=== PATIENT | female | born 1950 | race African-American/Black ===

== ENCOUNTER 2016-12-14 00:02 | Emergency (ER) | payer OTHER ==
[~2016-12-14] VITALS: Ht 160 cm; Wt 79.4 kg
[2016-12-14 00:02] VITALS: BP_SYST 120
[~2016-12-14 00:02] MED LIST: CHOL100028 PO; CHOL100035 PO; METO-442 PO; METO5TAB86 PO; NEPH PO; ONDA4TAB22 PO; PRO40 PO; SEN30 PO; SEVE800T8 PO; SSREG SUBCUT
[2016-12-14] MEDS ORDERED: MORPHINE 4 MG/ML INJ. SYRINGE IM ONE (00:15)
[2016-12-14] MEDS ORDERED: DIPHENHYDRAMINE HCL 25 MG CAPSULE PO ONE (00:30)
[2016-12-14 01:45] VITALS: BP_SYST 114
== END 2016-12-14 01:45 ==
LOC: SED 00:02
DX: M25.551 Pain in right hip (principal); I10 Essential (primary) hypertension; E11.29 Type 2 diabetes mellitus with other diabetic kidney complication; N28.9 Disorder of kidney and ureter, unspecified; Z79.4 Long term (current) use of insulin; Z88.0 Allergy status to penicillin; Z86.79 Personal history of other diseases of the circulatory system
CPT/HCPCS: 73510; 96372; 99284; J2270; Q0163

== ENCOUNTER 2017-02-12 16:21 | Emergency (ER) | payer OTHER ==
[2017-02-12 16:25] VITALS: BP_SYST 143
[2017-02-12 18:06] LABS: BASOPHILS # (AUTO) 0.1 K/uL (0.0-0.2); BASOPHILS % (AUTO) 1.2 % (0.0-2.0); EOSINOPHILS # (AUTO) 0.2 K/uL (0.0-0.4); EOSINOPHILS % (AUTO) 4.2 % (0.0-4.0); HEMATOCRIT 42.7 % (36-48); HEMOGLOBIN 13.3 g/dL (12.0-16.0); LYMPHOCYTES # (AUTO) 1.9 K/uL (1.0-5.5); LYMPHOCYTES % (AUTO) 33.6 % (20.5-51.5); MEAN CORPUSCULAR HEMOGLOBIN 30 pg (27-31); MEAN CORPUSCULAR HGB CONC 31 % (32-36); MEAN CORPUSCULAR VOLUME 96 fL (79.0-98.0); MONOCYTES # (AUTO) 0.6 K/uL (0.0-1.0); MONOCYTES % (AUTO) 10.1 % (1.7-9.3); NEUTROPHILS # (AUTO) 2.8 K/uL (1.8-7.7); NEUTROPHILS % (AUTO) 50.9 % (40.0-70.0); PLATELET COUNT (AUTO) 252 K/uL (130-430); RED BLOOD CELL COUNT(AUTO) 4.43 MIL/uL (4.2-6.2); RED CELL DISTRIBUTION WIDTH 14.4 % (9.0-15.0); WHITE BLOOD COUNT (AUTO) 5.6 K/uL (4.8-10.8)
[2017-02-12 18:18] LABS: CALCIUM 9.8 mg/dL (8.4-11.0); CREATININE 5.65 mg/dL (0.55-1.30); POTASSIUM 3.8 mmol/L (3.5-5.1)
[2017-02-12 18:23] LABS: ALBUMIN 3.2 g/dL (3.4-4.8); TOTAL BILIRUBIN 0.4 mg/dL (0.0-1.0); TOTAL PROTEIN, SERUM 7.3 g/dL (6.4-8.3)
[2017-02-12 20:41] VITALS: BP_SYST 145
== END 2017-02-12 21:14 | disposition home or self-care (01) ==
LOC: SED 16:21
DX: R53.1 Weakness (principal); R42 Dizziness and giddiness; E11.9 Type 2 diabetes mellitus without complications; I10 Essential (primary) hypertension; Z88.0 Allergy status to penicillin; Z88.2 Allergy status to sulfonamides
CPT/HCPCS: 36415; 70450-TC; 80053; 85025; 99285

== ENCOUNTER 2019-10-08 08:39 | Emergency (ER) | payer OTHER ==
[~2019-10-08] VITALS: Ht 160 cm; Wt 72.6 kg
[~2019-10-08 08:39] MED LIST changes: -CHOL100028 PO; +CHOL100034 PO
[2019-10-08 08:52] VITALS: BP_SYST 106
[2019-10-08 09:24] LABS: BASOPHILS # (AUTO) 0.1 K/uL (0.0-0.2); BASOPHILS % (AUTO) 0.7 % (0.0-2.0); EOSINOPHILS # (AUTO) 0.2 K/uL (0.0-0.4); EOSINOPHILS % (AUTO) 2.8 % (0.0-4.0); HEMATOCRIT 37.9 % (36-48); HEMOGLOBIN 12.2 g/dL (12.0-16.0); LYMPHOCYTES # (AUTO) 1.5 K/uL (1.0-5.5); LYMPHOCYTES % (AUTO) 21.4 % (20.5-51.5); MEAN CORPUSCULAR HEMOGLOBIN 32 pg (27-31); MEAN CORPUSCULAR HGB CONC 32 % (32-36); MEAN CORPUSCULAR VOLUME 98 fL (79.0-98.0); MONOCYTES # (AUTO) 0.7 K/uL (0.0-1.0); MONOCYTES % (AUTO) 9.4 % (1.7-9.3); NEUTROPHILS # (AUTO) 4.7 K/uL (1.8-7.7); NEUTROPHILS % (AUTO) 65.7 % (40.0-70.0); PLATELET COUNT (AUTO) 284 K/uL (130-430); RED BLOOD CELL COUNT(AUTO) 3.87 MIL/uL (4.2-6.2); RED CELL DISTRIBUTION WIDTH 16.8 % (9.0-15.0); WHITE BLOOD COUNT (AUTO) 7.2 K/uL (4.8-10.8)
[2019-10-08 09:42] LABS: CALCIUM 8.9 mg/dL (8.4-11.0); CREATININE 5.4 mg/dL (0.55-1.30); POTASSIUM 4.7 mmol/L (3.5-5.1)
[2019-10-08 09:46] LABS: TOTAL BILIRUBIN 0.5 mg/dL (0.0-1.0)
[2019-10-08 10:14] LABS: PROTHROMBIN TIME 9.9 SECS (9.5-12.5)
== END 2019-10-08 10:16 | disposition home or self-care (01) ==
LOC: SED 08:39
DX: T82.838A Hemorrhage due to vascular prosthetic devices, implants and grafts, initial encounter (principal); E11.22 Type 2 diabetes mellitus with diabetic chronic kidney disease; I12.0 Hypertensive chronic kidney disease with stage 5 chronic kidney disease or end stage renal disease; N18.6 End stage renal disease; Z99.2 Dependence on renal dialysis; Z79.4 Long term (current) use of insulin; Z88.0 Allergy status to penicillin
CPT/HCPCS: 36415; 80053; 85025; 85610-TC; 85730-TC; 99283

== ENCOUNTER 2019-12-24 10:31 | Inpatient (IN) | payer OTHER ==
[2019-12-24] VITALS (9 sets, daily range): BP systolic 91–142
[~2019-12-24] VITALS: Ht 160 cm; Wt 68.5 kg
[2019-12-24] MEDS ORDERED: LIDOCAINE 1% 10 MG/ML, 20 ML MDV SUBCUT ONE (11:15)
[2019-12-24] MEDS ORDERED: HYDR-4273 PO (11:42)
[2019-12-24] MEDS ORDERED: OMEP20CA11 PO (11:42)
[2019-12-24] MEDS ORDERED: ALLO100T PO (11:42)
[2019-12-24] MEDS ORDERED: NEPH PO (11:42)
[2019-12-24] MEDS ORDERED: LIP40 PO (11:42)
[2019-12-24] MEDS ORDERED: ASPI-1153 PO (11:42)
[2019-12-24] MEDS ORDERED: MORPHINE 2 MG/ML INJ. SYRINGE IM ONE (12:00)
[2019-12-24] MEDS ORDERED: LORazepam 2 MG/ML VIAL IM ONE (12:00)
[2019-12-24 12:10] LABS: CALCIUM 7.7 mg/dL (8.4-11.0); CREATININE 4.52 mg/dL (0.55-1.30); POTASSIUM 3.7 mmol/L (3.5-5.1)
[2019-12-24] MEDS ORDERED: LORazepam 2 MG/ML VIAL ONE ×2 (12:13→14:17)
[2019-12-24 12:16] LABS: ALBUMIN 2.9 g/dL (3.4-4.8); TOTAL BILIRUBIN 0.6 mg/dL (0.0-1.0)
[2019-12-24 13:34] LABS: BASOPHILS # (AUTO) 0.1 K/uL (0.0-0.2); BASOPHILS % (AUTO) 0.6 % (0.0-2.0); EOSINOPHILS # (AUTO) 0.3 K/uL (0.0-0.4); HEMATOCRIT 27.6 % (36-48); HEMOGLOBIN 8.7 g/dL (12.0-16.0); LYMPHOCYTES # (AUTO) 2.2 K/uL (1.0-5.5); LYMPHOCYTES % (AUTO) 25.1 % (20.5-51.5); MEAN CORPUSCULAR HEMOGLOBIN 32 pg (27-31); MEAN CORPUSCULAR HGB CONC 31 % (32-36); MEAN CORPUSCULAR VOLUME 100 fL (79.0-98.0); MONOCYTES # (AUTO) 0.9 K/uL (0.0-1.0); MONOCYTES % (AUTO) 10.1 % (1.7-9.3); NEUTROPHILS # (AUTO) 5.4 K/uL (1.8-7.7); NEUTROPHILS % (AUTO) 61.2 % (40.0-70.0); PLATELET COUNT (AUTO) 226 K/uL (130-430); RED BLOOD CELL COUNT(AUTO) 2.75 MIL/uL (4.2-6.2); RED CELL DISTRIBUTION WIDTH 16.1 % (9.0-15.0); WHITE BLOOD COUNT (AUTO) 8.8 K/uL (4.8-10.8)
[2019-12-24] MEDS ORDERED: NOREPINEPHRINE 4 MG/4 ML VIAL IV ONE (14:12)
[2019-12-24] MEDS ORDERED: NOREPINEPHRINE BITARTRATE 4 MG in NS 246 ML IV ONE (14:15)
[2019-12-24] MEDS ORDERED: NACL 0.9% 1,000 ML IV ONE (14:45)
[2019-12-24] MEDS ORDERED: DEXTROSE 50% JECT 50 ML DISP.SYRIN IVP PRN (15:15)
[2019-12-24] MEDS ORDERED: LORazepam 2 MG/ML VIAL IVP PRN (15:15)
[2019-12-24] MEDS ORDERED: HYDROcodone/ACETAMIN 7.5-325 MG TAB PO PRN (15:15)
[2019-12-24] MEDS ORDERED: ONDANSETRON 4 MG ODT TAB PO PRN (15:15)
[2019-12-24 15:41] LABS: BASOPHILS % (AUTO) 0.4 % (0.0-2.0); EOSINOPHILS % (AUTO) 0.2 % (0.0-4.0); HEMOGLOBIN 8.8 g/dL (12.0-16.0); LYMPHOCYTES # (AUTO) 1.7 K/uL (1.0-5.5); LYMPHOCYTES % (AUTO) 15.3 % (20.5-51.5); MEAN CORPUSCULAR HEMOGLOBIN 32 pg (27-31); MEAN CORPUSCULAR HGB CONC 32 % (32-36); MEAN CORPUSCULAR VOLUME 102 fL (79.0-98.0); MONOCYTES # (AUTO) 0.9 K/uL (0.0-1.0); MONOCYTES % (AUTO) 8.2 % (1.7-9.3); NEUTROPHILS # (AUTO) 8.3 K/uL (1.8-7.7); NEUTROPHILS % (AUTO) 75.9 % (40.0-70.0); PLATELET COUNT (AUTO) 203 K/uL (130-430); RED BLOOD CELL COUNT(AUTO) 2.76 MIL/uL (4.2-6.2); RED CELL DISTRIBUTION WIDTH 16.3 % (9.0-15.0)
[2019-12-24] MEDS ORDERED: cefTRIAXone 1 GM in D5W 50 ML IV ONE (16:00)
[2019-12-24] MEDS ORDERED: VANCOMYCIN HCL 1,000 MG in NS 250 ML IV ONE (17:00)
[2019-12-24] MEDS ORDERED: ONDANSETRON HCL 4 MG/2 ML VIAL ONE (18:25)
[2019-12-24] MEDS ORDERED: HEPARIN SODIUM,PORCINE 5000 UNITS/ML VIAL ONE (18:45)
[2019-12-24] MEDS ORDERED: FLU VACC TS2019(65UP)/MF59C/PF 45 MCG/0.5 ML SYRINGE I.M. PRN (20:00)
[2019-12-24] MEDS ORDERED: ONDANSETRON HCL 4 MG/2 ML VIAL IVP ONE (20:15)
[2019-12-24 20:23] LABS: BASOPHILS # (AUTO) 0.1 K/uL (0.0-0.2); BASOPHILS % (AUTO) 0.5 % (0.0-2.0); EOSINOPHILS # (AUTO) 0.1 K/uL (0.0-0.4); EOSINOPHILS % (AUTO) 0.3 % (0.0-4.0); HEMATOCRIT 29.1 % (36-48); HEMOGLOBIN 9.2 g/dL (12.0-16.0); LYMPHOCYTES # (AUTO) 1.4 K/uL (1.0-5.5); LYMPHOCYTES % (AUTO) 6.5 % (20.5-51.5); MEAN CORPUSCULAR HEMOGLOBIN 29 pg (27-31); MEAN CORPUSCULAR HGB CONC 32 % (32-36); MONOCYTES # (AUTO) 1.6 K/uL (0.0-1.0); MONOCYTES % (AUTO) 7.5 % (1.7-9.3); NEUTROPHILS % (AUTO) 85.2 % (40.0-70.0); PLATELET COUNT (AUTO) 175 K/uL (130-430); RED BLOOD CELL COUNT(AUTO) 3.12 MIL/uL (4.2-6.2); RED CELL DISTRIBUTION WIDTH 24.5 % (9.0-15.0)
[2019-12-24 20:26] LABS: MEAN CORPUSCULAR VOLUME 93 fL (79.0-98.0); WHITE BLOOD COUNT (AUTO) 21.2 K/uL (4.8-10.8)
[2019-12-24 20:43] LABS: ALBUMIN 2.2 g/dL (3.4-4.8); CREATININE 4.47 mg/dL (0.55-1.30); POTASSIUM 3.2 mmol/L (3.5-5.1); TOTAL BILIRUBIN 0.5 mg/dL (0.0-1.0)
[2019-12-24] MEDS: D10W 250 ML IV SCH ×2 (20:51→21:47)
[2019-12-24 21:00] LABS: CALCIUM 5.9 mg/dL (8.4-11.0)
[2019-12-24] MEDS: ATORVASTATIN 20 MG TABLET PO SCH (21:00)
[2019-12-24] MEDS ORDERED: cefTRIAXone 1 GM IVPB PREMIX 50 ML IV ONE (21:02)
[2019-12-24] MEDS ORDERED: VANCOMYCIN HCL 1000 MG/VIAL IV ONE (21:02)
[2019-12-25] VITALS (25 sets, daily range): BP systolic 83–121
[2019-12-25] MEDS ORDERED: IPRATROPIUM/ALBUTEROL SULFATE 3 ML AMPUL.NEB (DUONEB) INH PRN
[2019-12-25] MEDS ORDERED: CALCIUM CHLORIDE 1 GM in NS 100 ML IV ONE ×2
[2019-12-25] MEDS ORDERED: CALCIUM CHLORIDE 1 GM/10 ML DISP.SYRIN (14 mEq Ca++/SYR) ONE (00:36)
[2019-12-25] MEDS ORDERED: LEVOFLOXACIN 500 MG/D5W 100 ML IV ONE ×2 (00:47)
[2019-12-25] MEDS ORDERED: NOREPINEPHRINE 4 MG/4 ML VIAL IV ONE (01:14)
[2019-12-25] MEDS ORDERED: NOREPINEPHRINE BITARTRATE 4 MG in NS 246 ML IV PRN (01:15)
[2019-12-25] MEDS: IPRATROPIUM/ALBUTEROL SULFATE 3 ML AMPUL.NEB (DUONEB) INH SCH ×4 (01:42→20:10)
[2019-12-25 05:12] LABS: EOSINOPHILS # (AUTO) 0.3 K/uL (0.0-0.4)
[2019-12-25 05:43] LABS: BASOPHILS # (AUTO) 0.1 K/uL (0.0-0.2); BASOPHILS % (AUTO) 0.5 % (0.0-2.0); EOSINOPHILS % (AUTO) 1.6 % (0.0-4.0); HEMATOCRIT 29.9 % (36-48); HEMOGLOBIN 9.5 g/dL (12.0-16.0); LYMPHOCYTES # (AUTO) 2.2 K/uL (1.0-5.5); MEAN CORPUSCULAR HEMOGLOBIN 29 pg (27-31); MEAN CORPUSCULAR HGB CONC 32 % (32-36); MEAN CORPUSCULAR VOLUME 92 fL (79.0-98.0); MONOCYTES # (AUTO) 1.7 K/uL (0.0-1.0); MONOCYTES % (AUTO) 8.4 % (1.7-9.3); NEUTROPHILS # (AUTO) 15.5 K/uL (1.8-7.7); NEUTROPHILS % (AUTO) 78.5 % (40.0-70.0); PLATELET COUNT (AUTO) 219 K/uL (130-430); RED BLOOD CELL COUNT(AUTO) 3.26 MIL/uL (4.2-6.2); RED CELL DISTRIBUTION WIDTH 24.7 % (9.0-15.0); WHITE BLOOD COUNT (AUTO) 19.8 K/uL (4.8-10.8)
[2019-12-25 06:32] LABS: ALBUMIN 2.4 g/dL (3.4-4.8); CALCIUM 7.4 mg/dL (8.4-11.0); CREATININE 5.2 mg/dL (0.55-1.30); FREE T4 (FREE THYROXINE) 0.6 ng/dL (0.6-1.6); PHOSPHORUS 4.5 mg/dL (2.7-4.5); TOTAL BILIRUBIN 0.5 mg/dL (0.0-1.0)
[2019-12-25] MEDS ORDERED: NS 50 ML IV ONE (08:15)
[2019-12-25] MEDS ORDERED: CINACALCET HCL 30 MG TABLET PO SCH (09:00)
[2019-12-25] MEDS: NEPHROVITE, (FOLIC ACID/VITAMIN B COMP W-C 1 TAB) PO SCH (09:30)
[2019-12-25] MEDS: PANTOPRAZOLE SODIUM 40 MG TAB PO SCH (09:30)
[2019-12-25] MEDS: CHOLECALCIFEROL (VITAMIN D3) 2,000 UNIT TABLET PO SCH (09:30)
[2019-12-25] MEDS: ALLOPURINOL 100 MG TABLET (ZYLOPRIM) PO SCH (09:32)
[2019-12-25] MEDS ORDERED: VANCOMYCIN HCL 1 GM/NS PREMIX 250 ML IV ONE (10:00)
[2019-12-25] MEDS: D10W 250 ML IV SCH (10:30)
[2019-12-25] MEDS: NOREPINEPHRINE BITARTRATE 4 MG in D5W 250 ML IV PRN ×2 (10:41→21:20)
[2019-12-25] MEDS ORDERED: ASPIRIN 81 MG TABLET(ECOTRIN) PO ONE (15:15)
[2019-12-25] MEDS ORDERED: NACL 0.9% 1,000 ML IV SCH (17:45)
[2019-12-25] MEDS: cefTRIAXone 1 GM in D5W 50 ML IV SCH (21:20)
[2019-12-25] MEDS: ATORVASTATIN 20 MG TABLET PO SCH (21:21)
[2019-12-26] VITALS (24 sets, daily range): BP systolic 98–122
[2019-12-26] MEDS: IPRATROPIUM/ALBUTEROL SULFATE 3 ML AMPUL.NEB (DUONEB) INH SCH ×4 (01:22→19:34)
[2019-12-26] MEDS: NOREPINEPHRINE BITARTRATE 4 MG in D5W 250 ML IV PRN ×2 (03:33→20:13)
[2019-12-26 06:09] LABS: BASOPHILS # (AUTO) 0.1 K/uL (0.0-0.2); BASOPHILS % (AUTO) 0.4 % (0.0-2.0); EOSINOPHILS # (AUTO) 0.3 K/uL (0.0-0.4); EOSINOPHILS % (AUTO) 2.7 % (0.0-4.0); HEMATOCRIT 24.2 % (36-48); HEMOGLOBIN 7.7 g/dL (12.0-16.0); LYMPHOCYTES # (AUTO) 1.1 K/uL (1.0-5.5); LYMPHOCYTES % (AUTO) 8.3 % (20.5-51.5); MEAN CORPUSCULAR HEMOGLOBIN 29 pg (27-31); MEAN CORPUSCULAR HGB CONC 32 % (32-36); MEAN CORPUSCULAR VOLUME 92 fL (79.0-98.0); MONOCYTES # (AUTO) 1.1 K/uL (0.0-1.0); MONOCYTES % (AUTO) 8.5 % (1.7-9.3); NEUTROPHILS # (AUTO) 10.1 K/uL (1.8-7.7); NEUTROPHILS % (AUTO) 80.1 % (40.0-70.0); PLATELET COUNT (AUTO) 186 K/uL (130-430); RED BLOOD CELL COUNT(AUTO) 2.64 MIL/uL (4.2-6.2); RED CELL DISTRIBUTION WIDTH 23.3 % (9.0-15.0); WHITE BLOOD COUNT (AUTO) 12.7 K/uL (4.8-10.8)
[2019-12-26 07:37] LABS: ALBUMIN 2.4 g/dL (3.4-4.8); CALCIUM 7.2 mg/dL (8.4-11.0); CREATININE 6.63 mg/dL (0.55-1.30); POTASSIUM 3.7 mmol/L (3.5-5.1); TOTAL BILIRUBIN 0.4 mg/dL (0.0-1.0)
[2019-12-26] MEDS ORDERED: NS 250 ML IV ONE (08:00)
[2019-12-26] MEDS: NACL 0.9% 1,000 ML IV SCH (08:00)
[2019-12-26] MEDS: PANTOPRAZOLE SODIUM 40 MG TAB PO SCH (09:46)
[2019-12-26] MEDS: CHOLECALCIFEROL (VITAMIN D3) 2,000 UNIT TABLET PO SCH (09:47)
[2019-12-26] MEDS: NEPHROVITE, (FOLIC ACID/VITAMIN B COMP W-C 1 TAB) PO SCH (09:47)
[2019-12-26] MEDS: ASPIRIN 81 MG TABLET(ECOTRIN) PO SCH (09:47)
[2019-12-26] MEDS: ALLOPURINOL 100 MG TABLET (ZYLOPRIM) PO SCH (09:53)
[2019-12-26 11:19] LABS: VANCOMYCIN,RANDOM 24.4 ug/mL
[2019-12-26] MEDS ORDERED: HEPARIN SODIUM, PORCINE 10,000 UNITS/ 10 ML VIAL MC ONE (17:00)
[2019-12-26] MEDS: ATORVASTATIN 20 MG TABLET PO SCH (21:11)
[2019-12-26] MEDS: cefTRIAXone 1 GM in D5W 50 ML IV SCH (21:11)
[2019-12-26] MEDS: INSULIN REGULAR, HUMAN 100 UNITS/ML, 10 ML VIAL (humuLIN R) SUBCUT PRN (21:16)
[2019-12-27] VITALS (24 sets, daily range): BP systolic 95–138
[2019-12-27] MEDS: IPRATROPIUM/ALBUTEROL SULFATE 3 ML AMPUL.NEB (DUONEB) INH SCH ×2 (01:23→20:46)
[2019-12-27] MEDS: NACL 0.9% 1,000 ML IV SCH ×2 (04:03→17:09)
[2019-12-27 05:39] LABS: BASOPHILS # (AUTO) 0.1 K/uL (0.0-0.2); EOSINOPHILS # (AUTO) 0.5 K/uL (0.0-0.4); MONOCYTES # (AUTO) 0.9 K/uL (0.0-1.0); WHITE BLOOD COUNT (AUTO) 10.3 K/uL (4.8-10.8)
[2019-12-27 05:45] LABS: ALBUMIN 2.2 g/dL (3.4-4.8); CREATININE 4.84 mg/dL (0.55-1.30); POTASSIUM 3.5 mmol/L (3.5-5.1); TOTAL BILIRUBIN 0.4 mg/dL (0.0-1.0); VANCOMYCIN,RANDOM 19.5 ug/mL
[2019-12-27 05:52] LABS: BASOPHILS % (AUTO) 0.5 % (0.0-2.0); EOSINOPHILS % (AUTO) 4.7 % (0.0-4.0); LYMPHOCYTES # (AUTO) 1.1 K/uL (1.0-5.5); LYMPHOCYTES % (AUTO) 10.4 % (20.5-51.5); MEAN CORPUSCULAR HEMOGLOBIN 29 pg (27-31); MEAN CORPUSCULAR HGB CONC 32 % (32-36); MEAN CORPUSCULAR VOLUME 92 fL (79.0-98.0); MONOCYTES % (AUTO) 8.6 % (1.7-9.3); NEUTROPHILS # (AUTO) 7.8 K/uL (1.8-7.7); NEUTROPHILS % (AUTO) 75.8 % (40.0-70.0); PLATELET COUNT (AUTO) 154 K/uL (130-430)
[2019-12-27 06:20] LABS: HEMATOCRIT 21.1 % (36-48); HEMOGLOBIN 6.8 g/dL (12.0-16.0)
[2019-12-27] MEDS: INSULIN REGULAR, HUMAN 100 UNITS/ML, 10 ML VIAL (humuLIN R) SUBCUT PRN (07:07)
[2019-12-27] MEDS: PANTOPRAZOLE SODIUM 40 MG TAB PO SCH (08:28)
[2019-12-27] MEDS: ASPIRIN 81 MG TABLET(ECOTRIN) PO SCH (08:28)
[2019-12-27] MEDS: ALLOPURINOL 100 MG TABLET (ZYLOPRIM) PO SCH (08:28)
[2019-12-27] MEDS: NEPHROVITE, (FOLIC ACID/VITAMIN B COMP W-C 1 TAB) PO SCH (08:28)
[2019-12-27] MEDS: CHOLECALCIFEROL (VITAMIN D3) 2,000 UNIT TABLET PO SCH (08:28)
[2019-12-27] MEDS ORDERED: NS 100 ML IV ONE (08:30)
[2019-12-27] MEDS: NOREPINEPHRINE BITARTRATE 4 MG in D5W 250 ML IV PRN ×2 (08:38→17:10)
[2019-12-27] MEDS ORDERED: NS 500 ML IV ONE (08:45)
[2019-12-27 17:53] LABS: BASOPHILS # (AUTO) 0.1 K/uL (0.0-0.2); BASOPHILS % (AUTO) 0.9 % (0.0-2.0); EOSINOPHILS # (AUTO) 0.4 K/uL (0.0-0.4); EOSINOPHILS % (AUTO) 4.8 % (0.0-4.0); HEMATOCRIT 26.9 % (36-48); HEMOGLOBIN 8.6 g/dL (12.0-16.0); LYMPHOCYTES # (AUTO) 1.1 K/uL (1.0-5.5); LYMPHOCYTES % (AUTO) 13.5 % (20.5-51.5); MEAN CORPUSCULAR HEMOGLOBIN 30 pg (27-31); MEAN CORPUSCULAR HGB CONC 32 % (32-36); MEAN CORPUSCULAR VOLUME 94 fL (79.0-98.0); MONOCYTES # (AUTO) 0.7 K/uL (0.0-1.0); MONOCYTES % (AUTO) 9.2 % (1.7-9.3); NEUTROPHILS # (AUTO) 5.8 K/uL (1.8-7.7); NEUTROPHILS % (AUTO) 71.6 % (40.0-70.0); PLATELET COUNT (AUTO) 134 K/uL (130-430); RED BLOOD CELL COUNT(AUTO) 2.87 MIL/uL (4.2-6.2); RED CELL DISTRIBUTION WIDTH 20.8 % (9.0-15.0); WHITE BLOOD COUNT (AUTO) 8.1 K/uL (4.8-10.8)
[2019-12-27] MEDS: cefTRIAXone 1 GM in D5W 50 ML IV SCH (21:43)
[2019-12-27] MEDS: ATORVASTATIN 20 MG TABLET PO SCH (21:43)
[2019-12-28] VITALS (20 sets, daily range): BP systolic 89–134
[2019-12-28] MEDS: IPRATROPIUM/ALBUTEROL SULFATE 3 ML AMPUL.NEB (DUONEB) INH SCH ×4 (00:45→19:00)
[2019-12-28] MEDS: NACL 0.9% 1,000 ML IV SCH ×2 (03:07→16:11)
[2019-12-28 05:48] LABS: BASOPHILS % (AUTO) 0.4 % (0.0-2.0); EOSINOPHILS # (AUTO) 0.4 K/uL (0.0-0.4); EOSINOPHILS % (AUTO) 4.8 % (0.0-4.0); HEMATOCRIT 25.4 % (36-48); HEMOGLOBIN 8.3 g/dL (12.0-16.0); LYMPHOCYTES # (AUTO) 0.8 K/uL (1.0-5.5); LYMPHOCYTES % (AUTO) 10.1 % (20.5-51.5); MEAN CORPUSCULAR HEMOGLOBIN 30 pg (27-31); MEAN CORPUSCULAR HGB CONC 33 % (32-36); MEAN CORPUSCULAR VOLUME 92 fL (79.0-98.0); MONOCYTES # (AUTO) 0.7 K/uL (0.0-1.0); MONOCYTES % (AUTO) 8.5 % (1.7-9.3); NEUTROPHILS % (AUTO) 76.2 % (40.0-70.0); PLATELET COUNT (AUTO) 144 K/uL (130-430); RED BLOOD CELL COUNT(AUTO) 2.78 MIL/uL (4.2-6.2); RED CELL DISTRIBUTION WIDTH 20.3 % (9.0-15.0); WHITE BLOOD COUNT (AUTO) 7.9 K/uL (4.8-10.8)
[2019-12-28 06:08] LABS: CALCIUM 7.1 mg/dL (8.4-11.0); CREATININE 5.69 mg/dL (0.55-1.30); POTASSIUM 3.7 mmol/L (3.5-5.1); TOTAL BILIRUBIN 0.5 mg/dL (0.0-1.0)
[2019-12-28] MEDS: ASPIRIN 81 MG TABLET(ECOTRIN) PO SCH (08:49)
[2019-12-28] MEDS: NEPHROVITE, (FOLIC ACID/VITAMIN B COMP W-C 1 TAB) PO SCH (08:49)
[2019-12-28] MEDS: ALLOPURINOL 100 MG TABLET (ZYLOPRIM) PO SCH (08:49)
[2019-12-28] MEDS: CHOLECALCIFEROL (VITAMIN D3) 2,000 UNIT TABLET PO SCH (08:49)
[2019-12-28] MEDS: PANTOPRAZOLE SODIUM 40 MG TAB PO SCH (08:49)
[2019-12-28] MEDS: INSULIN REGULAR, HUMAN 100 UNITS/ML, 10 ML VIAL (humuLIN R) SUBCUT PRN (12:26)
[2019-12-28] MEDS ORDERED: ONDANSETRON HCL 4 MG/2 ML VIAL IVP PRN (13:45)
[2019-12-28] MEDS ORDERED: ALBUMIN HUMAN 25% 200 ML IV ONE (18:45)
[2019-12-28] MEDS: ATORVASTATIN 20 MG TABLET PO SCH (21:07)
[2019-12-29] VITALS (8 sets, daily range): BP systolic 70–129
[2019-12-29] MEDS: cefTRIAXone 1 GM in D5W 50 ML IV SCH ×2 (01:43→20:11)
[2019-12-29] MEDS ORDERED: HEPARIN SODIUM,PORCINE 5000 UNITS/ML VIAL ONE (01:54)
[2019-12-29] MEDS: IPRATROPIUM/ALBUTEROL SULFATE 3 ML AMPUL.NEB (DUONEB) INH SCH ×4 (01:55→20:48)
[2019-12-29 06:23] LABS: BASOPHILS # (AUTO) 0.1 K/uL (0.0-0.2); BASOPHILS % (AUTO) 0.5 % (0.0-2.0); EOSINOPHILS # (AUTO) 0.4 K/uL (0.0-0.4); EOSINOPHILS % (AUTO) 4.4 % (0.0-4.0); HEMATOCRIT 28.8 % (36-48); HEMOGLOBIN 9.6 g/dL (12.0-16.0); LYMPHOCYTES # (AUTO) 0.8 K/uL (1.0-5.5); LYMPHOCYTES % (AUTO) 7.6 % (20.5-51.5); MEAN CORPUSCULAR HEMOGLOBIN 30 pg (27-31); MEAN CORPUSCULAR HGB CONC 33 % (32-36); MEAN CORPUSCULAR VOLUME 90 fL (79.0-98.0); MONOCYTES % (AUTO) 10.3 % (1.7-9.3); NEUTROPHILS # (AUTO) 7.7 K/uL (1.8-7.7); NEUTROPHILS % (AUTO) 77.2 % (40.0-70.0); PLATELET COUNT (AUTO) 128 K/uL (130-430); RED BLOOD CELL COUNT(AUTO) 3.22 MIL/uL (4.2-6.2); RED CELL DISTRIBUTION WIDTH 19.6 % (9.0-15.0)
[2019-12-29 06:26] LABS: ALBUMIN 2.9 g/dL (3.4-4.8); CALCIUM 7.5 mg/dL (8.4-11.0); CREATININE 3.86 mg/dL (0.55-1.30); TOTAL BILIRUBIN 0.9 mg/dL (0.0-1.0)
[2019-12-29 06:46] LABS: POTASSIUM 4.1 mmol/L (3.5-5.1)
[2019-12-29] MEDS ORDERED: COMMUNICATION ORDER XX ONE (08:45)
[2019-12-29] MEDS ORDERED: NOREPINEPHRINE 4 MG/4 ML VIAL IV ONE (09:13)
[2019-12-29] MEDS ORDERED: ALBUMIN HUMAN 25% 50 ML IV ONE (09:30)
[2019-12-29] MEDS ORDERED: NACL 0.9% 1,000 ML IV ONE (09:30)
[2019-12-29] MEDS: NOREPINEPHRINE BITARTRATE 4 MG in D5W 250 ML IV PRN (09:35)
[2019-12-29] MEDS: ASPIRIN 81 MG TABLET(ECOTRIN) PO SCH (09:37)
[2019-12-29] MEDS: CHOLECALCIFEROL (VITAMIN D3) 2,000 UNIT TABLET PO SCH (09:37)
[2019-12-29] MEDS: NEPHROVITE, (FOLIC ACID/VITAMIN B COMP W-C 1 TAB) PO SCH (09:37)
[2019-12-29] MEDS: PANTOPRAZOLE SODIUM 40 MG TAB PO SCH (09:37)
[2019-12-29] MEDS: ALLOPURINOL 100 MG TABLET (ZYLOPRIM) PO SCH (09:37)
[2019-12-29] MEDS: MIDODRINE HCL 5 MG TABLET (PROAMATINE) PO SCH ×2 (14:42→20:09)
[2019-12-29] MEDS: NACL 0.9% 1,000 ML IV SCH (14:43)
[2019-12-29] MEDS: ATORVASTATIN 20 MG TABLET PO SCH (20:09)
[2019-12-30 00:10] VITALS: BP_SYST 137
[2019-12-30] MEDS: IPRATROPIUM/ALBUTEROL SULFATE 3 ML AMPUL.NEB (DUONEB) INH SCH ×4 (01:40→20:01)
[2019-12-30] MEDS: NACL 0.9% 1,000 ML IV SCH (06:29)
[2019-12-30 07:11] LABS: BASOPHILS # (AUTO) 0.1 K/uL (0.0-0.2); BASOPHILS % (AUTO) 0.7 % (0.0-2.0); EOSINOPHILS # (AUTO) 0.4 K/uL (0.0-0.4); HEMATOCRIT 30.2 % (36-48); HEMOGLOBIN 9.8 g/dL (12.0-16.0); LYMPHOCYTES # (AUTO) 0.8 K/uL (1.0-5.5); LYMPHOCYTES % (AUTO) 9.2 % (20.5-51.5); MEAN CORPUSCULAR HEMOGLOBIN 29 pg (27-31); MEAN CORPUSCULAR HGB CONC 32 % (32-36); MEAN CORPUSCULAR VOLUME 91 fL (79.0-98.0); MONOCYTES # (AUTO) 0.9 K/uL (0.0-1.0); MONOCYTES % (AUTO) 10.9 % (1.7-9.3); NEUTROPHILS # (AUTO) 6.2 K/uL (1.8-7.7); NEUTROPHILS % (AUTO) 74.2 % (40.0-70.0); PLATELET COUNT (AUTO) 140 K/uL (130-430); RED BLOOD CELL COUNT(AUTO) 3.32 MIL/uL (4.2-6.2); RED CELL DISTRIBUTION WIDTH 19.6 % (9.0-15.0); WHITE BLOOD COUNT (AUTO) 8.4 K/uL (4.8-10.8)
[2019-12-30 07:25] LABS: ALBUMIN 2.6 g/dL (3.4-4.8); CALCIUM 7.6 mg/dL (8.4-11.0); CREATININE 5.33 mg/dL (0.55-1.30); POTASSIUM 3.8 mmol/L (3.5-5.1); TOTAL BILIRUBIN 0.4 mg/dL (0.0-1.0)
[2019-12-30 08:20] VITALS: BP_SYST 105
[2019-12-30] MEDS: PANTOPRAZOLE SODIUM 40 MG TAB PO SCH (08:27)
[2019-12-30] MEDS: MIDODRINE HCL 5 MG TABLET (PROAMATINE) PO SCH ×3 (08:28→20:46)
[2019-12-30] MEDS: ASPIRIN 81 MG TABLET(ECOTRIN) PO SCH (08:28)
[2019-12-30] MEDS: NEPHROVITE, (FOLIC ACID/VITAMIN B COMP W-C 1 TAB) PO SCH (08:29)
[2019-12-30] MEDS: ALLOPURINOL 100 MG TABLET (ZYLOPRIM) PO SCH (08:29)
[2019-12-30] MEDS: CHOLECALCIFEROL (VITAMIN D3) 2,000 UNIT TABLET PO SCH (08:29)
[2019-12-30] MEDS ORDERED: HEPARIN SODIUM,PORCINE 5000 UNITS/ML VIAL MC ONE ×2 (12:15)
[2019-12-30] MEDS ORDERED: ALBUMIN HUMAN 25% 200 ML IV ONE (12:15)
[2019-12-30 12:36] VITALS: BP_SYST 92
[2019-12-30 16:38] VITALS: BP_SYST 96
[2019-12-30 20:00] VITALS: BP_SYST 121
[2019-12-30] MEDS: ATORVASTATIN 20 MG TABLET PO SCH (20:45)
[2019-12-30] MEDS: cefTRIAXone 1 GM in D5W 50 ML IV SCH (20:46)
[2019-12-31] MEDS: IPRATROPIUM/ALBUTEROL SULFATE 3 ML AMPUL.NEB (DUONEB) INH SCH ×4 (00:12→19:45)
[2019-12-31 00:39] VITALS: BP_SYST 111
[2019-12-31] MEDS: NACL 0.9% 1,000 ML IV SCH (06:20)
[2019-12-31 07:50] VITALS: BP_SYST 123
[2019-12-31] MEDS: CHOLECALCIFEROL (VITAMIN D3) 2,000 UNIT TABLET PO SCH (09:33)
[2019-12-31] MEDS: NEPHROVITE, (FOLIC ACID/VITAMIN B COMP W-C 1 TAB) PO SCH (09:33)
[2019-12-31] MEDS: PANTOPRAZOLE SODIUM 40 MG TAB PO SCH (09:33)
[2019-12-31] MEDS: MIDODRINE HCL 5 MG TABLET (PROAMATINE) PO SCH ×3 (09:33→20:27)
[2019-12-31] MEDS: ASPIRIN 81 MG TABLET(ECOTRIN) PO SCH (09:33)
[2019-12-31] MEDS: ALLOPURINOL 100 MG TABLET (ZYLOPRIM) PO SCH (09:33)
[2019-12-31 10:30] VITALS: BP_SYST 123
[2019-12-31 12:00] VITALS: BP_SYST 132
[2019-12-31 16:43] VITALS: BP_SYST 135
[2019-12-31 20:00] VITALS: BP_SYST 117
[2019-12-31] MEDS: cefTRIAXone 1 GM in D5W 50 ML IV SCH (20:27)
[2019-12-31] MEDS: ATORVASTATIN 20 MG TABLET PO SCH (20:27)
[2020-01-01 00:30] VITALS: BP_SYST 120
[2020-01-01] MEDS: IPRATROPIUM/ALBUTEROL SULFATE 3 ML AMPUL.NEB (DUONEB) INH SCH ×4 (01:07→19:00)
[2020-01-01 07:19] LABS: BASOPHILS # (AUTO) 0.1 K/uL (0.0-0.2); BASOPHILS % (AUTO) 0.6 % (0.0-2.0); EOSINOPHILS # (AUTO) 0.5 K/uL (0.0-0.4); EOSINOPHILS % (AUTO) 5.1 % (0.0-4.0); HEMATOCRIT 28.8 % (36-48); HEMOGLOBIN 9.2 g/dL (12.0-16.0); LYMPHOCYTES % (AUTO) 10.6 % (20.5-51.5); MEAN CORPUSCULAR HEMOGLOBIN 29 pg (27-31); MEAN CORPUSCULAR HGB CONC 32 % (32-36); MEAN CORPUSCULAR VOLUME 92 fL (79.0-98.0); MONOCYTES # (AUTO) 1.1 K/uL (0.0-1.0); MONOCYTES % (AUTO) 11.4 % (1.7-9.3); NEUTROPHILS % (AUTO) 72.3 % (40.0-70.0); PLATELET COUNT (AUTO) 200 K/uL (130-430); RED BLOOD CELL COUNT(AUTO) 3.14 MIL/uL (4.2-6.2); RED CELL DISTRIBUTION WIDTH 19.1 % (9.0-15.0); WHITE BLOOD COUNT (AUTO) 9.7 K/uL (4.8-10.8)
[2020-01-01 07:36] VITALS: BP_SYST 111
[2020-01-01 07:36] LABS: ALBUMIN 2.8 g/dL (3.4-4.8); CALCIUM 8.2 mg/dL (8.4-11.0); CREATININE 4.94 mg/dL (0.55-1.30); TOTAL BILIRUBIN 0.4 mg/dL (0.0-1.0)
[2020-01-01] MEDS: MIDODRINE HCL 5 MG TABLET (PROAMATINE) PO SCH ×3 (09:45→21:45)
[2020-01-01] MEDS: ALLOPURINOL 100 MG TABLET (ZYLOPRIM) PO SCH (09:45)
[2020-01-01] MEDS: CHOLECALCIFEROL (VITAMIN D3) 2,000 UNIT TABLET PO SCH (09:45)
[2020-01-01] MEDS: PANTOPRAZOLE SODIUM 40 MG TAB PO SCH (09:45)
[2020-01-01] MEDS: NEPHROVITE, (FOLIC ACID/VITAMIN B COMP W-C 1 TAB) PO SCH (09:45)
[2020-01-01] MEDS: ASPIRIN 81 MG TABLET(ECOTRIN) PO SCH (09:45)
[2020-01-01 12:24] VITALS: BP_SYST 125
[2020-01-01] MEDS: NACL 0.9% 1,000 ML IV SCH (16:49)
[2020-01-01 17:03] VITALS: BP_SYST 127
[2020-01-01] MEDS ORDERED: HEPARIN SODIUM,PORCINE 5000 UNITS/ML VIAL ONE (19:43)
[2020-01-01] MEDS: ATORVASTATIN 20 MG TABLET PO SCH (21:45)
[2020-01-01 23:24] VITALS: BP_SYST 130
[2020-01-02] MEDS: IPRATROPIUM/ALBUTEROL SULFATE 3 ML AMPUL.NEB (DUONEB) INH SCH ×4 (01:28→19:00)
[2020-01-02] MEDS ORDERED: HEPARIN SODIUM,PORCINE 5000 UNITS/ML VIAL MC ONE (01:45)
[2020-01-02] MEDS: NACL 0.9% 1,000 ML IV SCH (05:12)
[2020-01-02 06:10] LABS: BASOPHILS # (AUTO) 0.1 K/uL (0.0-0.2); BASOPHILS % (AUTO) 0.9 % (0.0-2.0); EOSINOPHILS # (AUTO) 0.4 K/uL (0.0-0.4); EOSINOPHILS % (AUTO) 5.4 % (0.0-4.0); HEMATOCRIT 26.8 % (36-48); HEMOGLOBIN 8.6 g/dL (12.0-16.0); LYMPHOCYTES % (AUTO) 13.7 % (20.5-51.5); MEAN CORPUSCULAR HEMOGLOBIN 29 pg (27-31); MEAN CORPUSCULAR HGB CONC 32 % (32-36); MEAN CORPUSCULAR VOLUME 91 fL (79.0-98.0); MONOCYTES # (AUTO) 0.7 K/uL (0.0-1.0); MONOCYTES % (AUTO) 10.2 % (1.7-9.3); NEUTROPHILS # (AUTO) 5.1 K/uL (1.8-7.7); NEUTROPHILS % (AUTO) 69.8 % (40.0-70.0); PLATELET COUNT (AUTO) 216 K/uL (130-430); RED BLOOD CELL COUNT(AUTO) 2.95 MIL/uL (4.2-6.2); RED CELL DISTRIBUTION WIDTH 18.8 % (9.0-15.0); WHITE BLOOD COUNT (AUTO) 7.3 K/uL (4.8-10.8)
[2020-01-02 06:22] LABS: CALCIUM 8.1 mg/dL (8.4-11.0); CREATININE 4.31 mg/dL (0.55-1.30)
[2020-01-02] MEDS: ASPIRIN 81 MG TABLET(ECOTRIN) PO SCH (08:58)
[2020-01-02] MEDS: ALLOPURINOL 100 MG TABLET (ZYLOPRIM) PO SCH (08:58)
[2020-01-02] MEDS: MIDODRINE HCL 5 MG TABLET (PROAMATINE) PO SCH ×3 (08:58→21:30)
[2020-01-02] MEDS: PANTOPRAZOLE SODIUM 40 MG TAB PO SCH (08:58)
[2020-01-02] MEDS: NEPHROVITE, (FOLIC ACID/VITAMIN B COMP W-C 1 TAB) PO SCH (08:58)
[2020-01-02] MEDS: CHOLECALCIFEROL (VITAMIN D3) 2,000 UNIT TABLET PO SCH (09:00)
[2020-01-02 12:50] VITALS: BP_SYST 154
[2020-01-02] MEDS ORDERED: POTASSIUM CHLORIDE 20 MEQ TAB.PRT.SR PO ONE (16:00)
[2020-01-02] MEDS ORDERED: METOPROLOL TARTRATE 50 MG TABLET PO ONE (16:15)
[2020-01-02 16:42] VITALS: BP_SYST 138
[2020-01-02 20:00] VITALS: BP_SYST 119
[2020-01-02] MEDS: ATORVASTATIN 20 MG TABLET PO SCH (21:25)
[2020-01-02] MEDS: METOPROLOL TARTRATE 50 MG TABLET PO SCH (21:29)
[2020-01-02] MEDS: INSULIN REGULAR, HUMAN 100 UNITS/ML, 10 ML VIAL (humuLIN R) SUBCUT PRN (21:32)
[2020-01-03 00:35] VITALS: BP_SYST 129
[2020-01-03] MEDS: IPRATROPIUM/ALBUTEROL SULFATE 3 ML AMPUL.NEB (DUONEB) INH SCH ×2 (01:05→07:07)
[2020-01-03] MEDS: INSULIN REGULAR, HUMAN 100 UNITS/ML, 10 ML VIAL (humuLIN R) SUBCUT PRN (06:11)
[2020-01-03 08:11] VITALS: BP_SYST 136
[2020-01-03] MEDS: ASPIRIN 81 MG TABLET(ECOTRIN) PO SCH (08:42)
[2020-01-03] MEDS: PANTOPRAZOLE SODIUM 40 MG TAB PO SCH (08:42)
[2020-01-03] MEDS: ALLOPURINOL 100 MG TABLET (ZYLOPRIM) PO SCH (08:42)
[2020-01-03] MEDS: NEPHROVITE, (FOLIC ACID/VITAMIN B COMP W-C 1 TAB) PO SCH (08:42)
[2020-01-03] MEDS: CHOLECALCIFEROL (VITAMIN D3) 2,000 UNIT TABLET PO SCH (08:42)
[2020-01-03] MEDS: METOPROLOL TARTRATE 50 MG TABLET PO SCH (08:43)
[2020-01-03] MEDS: MIDODRINE HCL 5 MG TABLET (PROAMATINE) PO SCH ×2 (08:43→14:28)
[2020-01-03 09:19] VITALS: BP_SYST 136
[2020-01-03] MEDS ORDERED: HEPARIN SODIUM,PORCINE 5000 UNITS/ML VIAL SUBCUT ONE (10:15)
[2020-01-03 11:02] VITALS: BP_SYST 107
[2020-01-03 12:09] VITALS: BP_SYST 107
== END 2020-01-03 15:25 | DRG 871 ==
LOC: SED 10:31 → SIC 15:57 → STU 12-28 17:13 → SIC 12-29 08:49 → STU 12-29 17:47
PROVIDERS: ADMIT Internal Medicine; ATTEND Internal Medicine
PROC: 06HY33Z Insertion of Infusion Device into Lower Vein, Percutaneous Approach (ICD-10-PCS; 2019-12-24)
PROC: B54BZZA Ultrasonography of Right Lower Extremity Veins, Guidance (ICD-10-PCS; 2019-12-24)
PROC: 30233N1 Transfusion of Nonautologous Red Blood Cells into Peripheral Vein, Percutaneous Approach (ICD-10-PCS; 2019-12-24)
PROC: 5A1D70Z Performance of Urinary Filtration, Intermittent, Less than 6 Hours Per Day (ICD-10-PCS; principal; 2019-12-26)
PROC: 5A1D70Z Performance of Urinary Filtration, Intermittent, Less than 6 Hours Per Day (ICD-10-PCS; 2019-12-28)
PROC: 5A1D70Z Performance of Urinary Filtration, Intermittent, Less than 6 Hours Per Day (ICD-10-PCS; 2019-12-30)
PROC: 5A1D70Z Performance of Urinary Filtration, Intermittent, Less than 6 Hours Per Day (ICD-10-PCS; 2020-01-01)
PROC: 5A1D70Z Performance of Urinary Filtration, Intermittent, Less than 6 Hours Per Day (ICD-10-PCS; 2020-01-03)
DX: A41.9 Sepsis, unspecified organism (principal); N18.6 End stage renal disease; R65.21 Severe sepsis with septic shock; R57.1 Hypovolemic shock; J18.9 Pneumonia, unspecified organism; I12.0 Hypertensive chronic kidney disease with stage 5 chronic kidney disease or end stage renal disease; D62 Acute posthemorrhagic anemia; I69.351 Hemiplegia and hemiparesis following cerebral infarction affecting right dominant side; R47.01 Aphasia; G40.89 Other seizures; T82.838A Hemorrhage due to vascular prosthetic devices, implants and grafts, initial encounter; G93.49 Other encephalopathy; E44.0 Moderate protein-calorie malnutrition; E11.22 Type 2 diabetes mellitus with diabetic chronic kidney disease; D63.8 Anemia in other chronic diseases classified elsewhere; E78.5 Hyperlipidemia, unspecified; Y84.1 Kidney dialysis as the cause of abnormal reaction of the patient, or of later complication, without mention of misadventure at the time of the procedure; M25.551 Pain in right hip; G89.29 Other chronic pain; Z74.01 Bed confinement status; Y92.89 Other specified places as the place of occurrence of the external cause; Z68.26 Body mass index [BMI] 26.0-26.9, adult; Z99.2 Dependence on renal dialysis; Z88.2 Allergy status to sulfonamides; Z88.0 Allergy status to penicillin; Z79.899 Other long term (current) drug therapy; Z79.82 Long term (current) use of aspirin
CPT/HCPCS: 36415; 36600; 70450-TC; 71045; 80048; 80053; 80061; 80202-TC; 82533; 82803-TC; 82962; 83880; 84100-TC; 84439; 84484; 85025; 85610-TC; 85730-TC; 86886; 86900; 86901; 86920; 87040-TC; 87081; 90935; 90937; 93005; 93306; 94640; 94760; 95816; 96372; 99285; G0378; J0696; J1644; J1815; J1956; J2001; J2060; J2270; J2405; J3370; J7030; J7040; J7050; J7060; P9021; P9046; Q0162

== ENCOUNTER 2020-01-19 08:25 | Emergency (ER) | payer OTHER ==
[~2020-01-19] VITALS: Ht 165.1 cm; Wt 95.3 kg
[~2020-01-19 08:25] MED LIST changes: +ALLO100T PO; +ASPI-1153 PO; -CHOL100035 PO; +HYDR-4273 PO; +LIP40 PO; -METO5TAB86 PO; +OMEP20CA11 PO; -PRO40 PO; -SEN30 PO; -SEVE800T8 PO; -SSREG SUBCUT
[2020-01-19 08:49] VITALS: BP_SYST 91
[2020-01-19 09:08] LABS: BASOPHILS # (AUTO) 0.2 K/uL (0.0-0.2); BASOPHILS % (AUTO) 1.4 % (0.0-2.0); EOSINOPHILS # (AUTO) 0.6 K/uL (0.0-0.4); EOSINOPHILS % (AUTO) 5.1 % (0.0-4.0); HEMATOCRIT 22.5 % (36-48); HEMOGLOBIN 7.3 g/dL (12.0-16.0); LYMPHOCYTES # (AUTO) 1.6 K/uL (1.0-5.5); LYMPHOCYTES % (AUTO) 14.9 % (20.5-51.5); MEAN CORPUSCULAR HEMOGLOBIN 30 pg (27-31); MEAN CORPUSCULAR HGB CONC 33 % (32-36); MEAN CORPUSCULAR VOLUME 91 fL (79.0-98.0); MONOCYTES # (AUTO) 0.8 K/uL (0.0-1.0); MONOCYTES % (AUTO) 7.5 % (1.7-9.3); NEUTROPHILS # (AUTO) 7.7 K/uL (1.8-7.7); NEUTROPHILS % (AUTO) 71.1 % (40.0-70.0); PLATELET COUNT (AUTO) 199 K/uL (130-430); RED BLOOD CELL COUNT(AUTO) 2.47 MIL/uL (4.2-6.2); RED CELL DISTRIBUTION WIDTH 21.1 % (9.0-15.0); WHITE BLOOD COUNT (AUTO) 10.8 K/uL (4.8-10.8)
[2020-01-19] MEDS ORDERED: MAGN400C PO (09:29)
[2020-01-19 09:31] LABS: CALCIUM 8.3 mg/dL (8.4-11.0); CREATININE 6.18 mg/dL (0.55-1.30); POTASSIUM 3.4 mmol/L (3.5-5.1)
[2020-01-19 09:41] LABS: ALBUMIN 2.7 g/dL (3.4-4.8); FREE T4 (FREE THYROXINE) 1.2 ng/dl (0.8-1.5); TOTAL BILIRUBIN 0.8 mg/dL (0.0-1.0)
[2020-01-19 09:56] LABS: BILIRUBIN,URINE 1+ (NEGATIVE); BLOOD, URINE 1+ (NEGATIVE); CLARITY/URINE TURBID (CLEAR); COLOR,URINE YELLOW (YELLOW); GLUCOSE,URINE NEGATIVE (NEGATIVE); KETONES,URINE NEGATIVE (NEGATIVE); LEUKOCYTE ESTERASE ,URINE 2+ (NEGATIVE); NITRITE, URINE NEGATIVE (NEGATIVE); PH,URINE 5.5 (5.0-8.0); PROTEIN URINE 1+ (NEGATIVE); UROBILINOGEN,URINE 0.2 (0.2-1.0)
[2020-01-19] MEDS ORDERED: LIDOCAINE/EPI 2% 1:100000 20 ML VIAL INJ ONE (10:00)
[2020-01-19 10:46] LABS: BACTERIA,URINE MANY /HPF (None Seen); WBC,URINE 20-50 /HPF (0-3); YEAST,URINE Moderate /HPF (None Seen)
[2020-01-19 11:30] VITALS: BP_SYST 117
[2020-01-19] MEDS ORDERED: cefTRIAXone 1 GM VIAL IM ONE (11:30)
[2020-01-19] MEDS ORDERED: LIDOCAINE 2%, 20 ML MDV ONE (11:37)
[2020-01-19] MEDS ORDERED: cefTRIAXone 1 GM VIAL ONE (11:37)
== END 2020-01-19 11:30 | disposition home or self-care (01) ==
LOC: SED 08:50
DX: S41.112A Laceration without foreign body of left upper arm, initial encounter (principal); I10 Essential (primary) hypertension; E11.29 Type 2 diabetes mellitus with other diabetic kidney complication; Z79.899 Other long term (current) drug therapy; Z86.73 Personal history of transient ischemic attack (TIA), and cerebral infarction without residual deficits; Z79.82 Long term (current) use of aspirin; Z88.2 Allergy status to sulfonamides; Z88.0 Allergy status to penicillin; X58.XXXA Exposure to other specified factors, initial encounter; Y93.89 Activity, other specified; Y92.89 Other specified places as the place of occurrence of the external cause; Y99.8 Other external cause status
CPT/HCPCS: 36415; 71045; 74018; 80053; 81000; 83605; 83880; 84439; 84484; 85025; 85610; 87040; 87086; 93005; 96372; 99285; J0696; J2001; J7030

== ENCOUNTER 2020-02-08 08:14 | Emergency (ER) | payer OTHER ==
[~2020-02-08] VITALS: Ht 149.9 cm; Wt 52.6 kg
[~2020-02-08 08:14] MED LIST changes: +MAGN400C PO
[2020-02-08 08:15] VITALS: BP_SYST 105; BP_SYST 97
[2020-02-08 10:29] VITALS: BP_SYST 110
== END 2020-02-08 10:29 | disposition home or self-care (01) ==
LOC: SED 08:14
DX: T82.838A Hemorrhage due to vascular prosthetic devices, implants and grafts, initial encounter (principal); I10 Essential (primary) hypertension; E11.9 Type 2 diabetes mellitus without complications; Z88.0 Allergy status to penicillin; Z88.2 Allergy status to sulfonamides; Z79.899 Other long term (current) drug therapy
CPT/HCPCS: 99285; 99291

== ENCOUNTER 2020-08-15 21:11 | Inpatient (IN) | payer OTHER, SELFPAY ==
[~2020-08-15] VITALS: Ht 149.9 cm; Wt 59.9 kg
[~2020-08-15 21:11] MED LIST changes: -ASPI-1153 PO; +ASPI-1393 PO; -OMEP20CA11 PO; +OMEP20CA15 PO
[2020-08-15 21:15] VITALS: BP_SYST 67
--- NOTE | 2020-08-15 21:17 | NUR ---
Placed in room 7 . Placed on bottle sorter, blood pressure machine and pulse oximeter. To gown for exam. Side rails up. Report given to ZEFERINO YING.
--- NOTE | 2020-08-15 21:38 | NUR ---
Dr. Howell [facility] for pt eval
--- NOTE | 2020-08-15 21:48 | NUR ---
Pt BIBA to ED HYPOTENTION AND SHUNT MALFUNCTION. A/O x 4, VSS with SBP Low 90s and 100 No other compliants noted Resting on gurney rails up
--- NOTE | 2020-08-15 22:00 | NUR ---
Pt extreme difficult for IV access
[2020-08-15] MEDS ORDERED: NACL 0.9% 1,000 ML IV ONE (23:30)
--- NOTE | 2020-08-15 23:52 | NUR ---
Labs drawn and IVF well tolerated
[2020-08-16 00:10] LABS: BASOPHILS # (AUTO) 0.1 K/uL (0.0-0.2); BASOPHILS % (AUTO) 0.5 % (0.0-2.0); EOSINOPHILS # (AUTO) 0.2 K/uL (0.0-0.4); EOSINOPHILS % (AUTO) 1.2 % (0.0-4.0); HEMOGLOBIN 9.7 g/dL (12.0-16.0); LYMPHOCYTES # (AUTO) 1.2 K/uL (1.0-5.5); LYMPHOCYTES % (AUTO) 9.9 % (20.5-51.5); MEAN CORPUSCULAR HEMOGLOBIN 31 pg (27-31); MEAN CORPUSCULAR HGB CONC 33 % (32-36); MEAN CORPUSCULAR VOLUME 97 fL (79.0-98.0); MONOCYTES # (AUTO) 0.9 K/uL (0.0-1.0); MONOCYTES % (AUTO) 7.4 % (1.7-9.3); NEUTROPHILS # (AUTO) 10.1 K/uL (1.8-7.7); PLATELET COUNT (AUTO) 250 K/uL (130-430); RED CELL DISTRIBUTION WIDTH 16.6 % (9.0-15.0); WHITE BLOOD COUNT (AUTO) 12.5 K/uL (4.8-10.8)
[2020-08-16] MEDS ORDERED: SEN30 PO (00:11)
[2020-08-16] MEDS ORDERED: NEPH PO (00:11)
--- NOTE | 2020-08-16 00:12 | NUR ---
Medication reconciliation completed with information provided by Vivian Pimentel. Any prior medication reconciliation on file was reviewed and corrected.
[2020-08-16 00:26] LABS: INR 0.9 (0.8-1.2); PROTHROMBIN TIME 9.6 SECS (9.5-12.5)
[2020-08-16 00:41] LABS: ALBUMIN 2.5 g/dL (3.4-4.8); CALCIUM 7.7 mg/dL (8.4-11.0); CREATININE 3.66 mg/dL (0.55-1.30); POTASSIUM 2.9 mmol/L (3.5-5.1); TOTAL BILIRUBIN 0.9 mg/dL (0.0-1.0)
[2020-08-16] MEDS ORDERED: cefTRIAXone 1 GM VIAL ONE ×2 (01:10→23:32)
[2020-08-16] MEDS ORDERED: cephALEXin 500 MG CAPSULE PO ONE (01:15)
[2020-08-16] MEDS ORDERED: cefTRIAXone 1 GM in D5W 50 ML IV ONE (01:15)
[2020-08-16] MEDS ORDERED: POTASSIUM CHLORIDE 20 MEQ TAB.PRT.SR PO ONE (01:15)
--- NOTE | 2020-08-16 01:20 | NUR ---
VSS no s/s of acute distress Resting on gurney rails up
--- NOTE | 2020-08-16 02:25 | NUR ---
Pt stated feeling a bit better, tolerated PO med mixed in pudding snack very well
[2020-08-16] MEDS ORDERED: POTASSIUM CHLORIDE 20 MEQ TAB.PRT.SR ONE (03:26)
--- NOTE | 2020-08-16 03:30 | NUR ---
S/W Margarito Sawyer, gave report
--- NOTE | 2020-08-16 05:58 | NUR ---
Spoke to [facility] Operations Technician, Gale, regarding update on pt status. Stated she will call their Doc to speak to Dr. Mcpherson.
[2020-08-16] MEDS ORDERED: NOREPINEPHRINE 4 MG/4 ML VIAL IV ONE (06:44)
[2020-08-16] MEDS ORDERED: NS 250 ML IV ONE (06:45)
[2020-08-16] MEDS ORDERED: MEROPENEM 1 GM IVPB PREMIX 50 ML IV ONE (06:45)
[2020-08-16] MEDS ORDERED: NOREPINEPHRINE BITARTRATE 4 MG in NS 246 ML IV ONE (06:45)
[2020-08-16] MEDS ORDERED: VANCOMYCIN HCL 1,000 MG in NS 250 ML IV ONE (06:45)
[2020-08-16] MEDS ORDERED: VANCOMYCIN HCL 1000 MG/VIAL IV ONE (06:56)
--- NOTE | 2020-08-16 07:00 | NUR ---
Received report from endorsing RN at bedside. Patient complaint is hypertension. Current BP is 103/40. Patient laying in bed comfortably and no signs of acute distress.
--- NOTE | 2020-08-16 07:44 | NUR ---
CALLED FOR BED ASSIGNMENT, SPOKE WITH UDAY, AWAITING CALL BACK
--- NOTE | 2020-08-16 08:31 | NUR ---
Previous notes placed in Error. Patient admitted. ADMISSION NOTE Transferred patient from ER via gurney to Room 100B. Report given at bedside via sbar. Patient admitted with diagnosis of Hyptotension. Patient is awake, alert, oriented X 4. Patient oriented to hospital room, call light, toileting, pain management and safety-teach back done. Patient informed that Dr. Huerta will be her MD and that their room number is 100B. Personal belongings checked and Belongings List documented. Call light within reach.
--- NOTE | 2020-08-16 08:31 | NUR ---
Patient given written and verbal discharge instructions and verbalizes understanding. ER MD discussed with patient the results and treatment provided. Patient in stable condition. ID arm band removed. Rx Naproxen and Tramadol given. Patient educated on pain management and to follow up with PMD. Pain Scale 0/10. Opportunity for questions provided and answered. Medication side effect fact sheet provided.
--- NOTE | 2020-08-16 09:04 | NUR ---
Admission Note Received patient from ER with diagnosis of Hypotension. Initial Plan of Care discussed-patient verbalized her understanding. Oriented to room, call light, pain management and safety. Side rails up x3, bed alarm on, call light within reach.
[2020-08-16 09:57] VITALS: BP_SYST 95
--- NOTE | 2020-08-16 10:20 | NUR ---
INITIAL NOTE Patient resting in the bed. No acute distress. Skin warm and dry to touch. IV intact to RIJ, no redness, no swelling, no leaking. On NS at 70ml/hr, infusing well. Safety measure maintained. Call light within reached. Bed locked in low position, side rails up, bed alarm on. Will continue to monitor.
--- NOTE | 2020-08-16 10:38 | NUR ---
CONSULTATION PAGED/CALLED Reason for Consultation: [] ESRD ON HD Person Who was Notified: [] JUDI Consulting Physician: [] DR STERN METAL BED ASSEMBLER FOR RASHMI SUBRAMANIAN Patient Registration Representative Specialty: [] NEPHROLOGY Ordering Physician: [] DR JOHNSON
--- NOTE | 2020-08-16 10:52 | NUR ---
SEEN AND EXAMINED BY BENITO PABLO.
[2020-08-16] MEDS: NACL 0.9% 1,000 ML IV SCH (10:53)
[2020-08-16 11:36] VITALS: BP_SYST 99
--- NOTE | 2020-08-16 11:41 | NUR ---
IV OUT. NO BLEEDING NOTE. IV TIP INTACT. DR. COOPER IN THE UNIT AND INFORMED WITH ORDER OF PICC LINE RECEIVED.
[2020-08-16] MEDS ORDERED: ONDANSETRON HCL 4 MG/2 ML VIAL IVP PRN (11:45)
[2020-08-16] MEDS ORDERED: ASPIRIN 81 MG TABLET(ECOTRIN) PO ONE (11:45)
[2020-08-16] MEDS ORDERED: NALOXONE HCL 0.4 MG/ML AMP (NARCAN) IVP PRN (11:45)
[2020-08-16] MEDS ORDERED: CINACALCET HCL 30 MG TABLET PO ONE (11:45)
[2020-08-16] MEDS ORDERED: ALLOPURINOL 100 MG TABLET (ZYLOPRIM) PO ONE (11:45)
[2020-08-16] MEDS ORDERED: CHOLECALCIFEROL (VITAMIN D3) 2,000 UNIT TABLET PO ONE (11:45)
[2020-08-16] MEDS ORDERED: HYDROcodone/ACETAMIN 5-325 MG TAB (NORCO/ VICODIN) PO PRN (11:45)
[2020-08-16] MEDS ORDERED: PANTOPRAZOLE SODIUM 40 MG TAB PO ONE (11:45)
[2020-08-16] MEDS ORDERED: NEPHROVITE, (FOLIC ACID/VITAMIN B COMP W-C 1 TAB) PO ONE (11:45)
[2020-08-16] MEDS ORDERED: ACETAMINOPHEN 325 MG TABLET PO PRN (12:00)
--- NOTE | 2020-08-16 12:35 | NUR ---
PICC NURSE INSERTED A PERIPHERAL LINE ON RAC, GAUGE 22. 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
--- NOTE | 2020-08-16 14:55 | NUR ---
SEEN AND EXAMINED BY MERA RANDOLPH WITH ORDER RECEIVED.
--- NOTE | 2020-08-16 15:07 | NUR ---
ROUND Patient resting in the bed. No acute distress. Skin warm and dry to touch. IV intact to RAC, no redness, no swelling, no drainage. On NS at 70ml/hr, infusing well. Safety measure maintained. Call light within reached. Bed locked in low position, side rails up, bed alarm on. Continue to monitor.
[2020-08-16 15:31] VITALS: BP_SYST 101
--- NOTE | 2020-08-16 17:50 | NUR ---
IV INFILTRATED Noted IV on RAC infiltrated with swelling. Called Dr. Huerta and waited to call back.
--- NOTE | 2020-08-16 18:55 | NUR ---
CLOSING NOTE Patient resting in the bed. No acute distress. Skin warm and dry to touch. Dr. Huerta still not call back, called second time. Safety measure maintained. Call light within reached. Bed locked in low position, side rails up, bed alarm on. Will endorse to night nurse.
--- NOTE | 2020-08-16 19:10 | NUR ---
OPENING NOTE REPORT RECEIVED FROM DAYSHIFT NURSE. PATIENT RECEIVED LYING IN BED, NO S/S OF ACUTE DISTRESS NOTED. SCRAP STRIPPER HAND AT BEDSIDE, PERFORMING ULTRASOUND ON LEFT UPPER EXTREMITY. BREATHING IS EVEN AND UNLABORED. NO IV SITE AT THIS TIME. PATIENT DENIES PAIN. CALL LIGHT WITH PATIENT. BED ALARM ON. WILL CONTINUE TO MONITOR.
--- NOTE | 2020-08-16 19:51 | NUR ---
SPOKE WITH DR JOHNSON RE: IV SITE MADE AWARE THAT PATIENT CURRENTLY DOES NOT HAVE AN IV SITE. PREVIOUS IV SITE 22 GAUGE RIGHT AC IS INFILTRATED. MD ORDERED TO KEEP TRYING FOR PERIPHERAL IV, STATED PATIENT NEEDS IVF, ALSO ENCOURAGE PATIENT TO DRINK WATER. ALSO MADE AWARE THAT LAB COULD NOT GET BLOOD DRAW EARLIER, BUT REATTEMPTING AT THIS TIME FOR BNP. WILL CARRY OUT ORDER.
[2020-08-16 20:00] VITALS: BP_SYST 101
[2020-08-16 20:20] LABS: INR 0.9 (0.8-1.2); PROTHROMBIN TIME 9.6 SECS (9.5-12.5)
[2020-08-16 20:22] LABS: CALCIUM 7.8 mg/dL (8.4-11.0); CREATININE 4.51 mg/dL (0.55-1.30); POTASSIUM 3.4 mmol/L (3.5-5.1)
[2020-08-16] MEDS: ATORVASTATIN 20 MG TABLET PO SCH (20:24)
--- NOTE | 2020-08-16 21:00 | NUR ---
SPOKE TO DR JOHNSON RE: POTASSIUM AND IV SITE MD MADE AWARE, MULTIPLE ATTEMPTS MADE FOR PERIPHERAL IV ON RIGHT ARM, PATIENT IS A HARD STICK. INFORMED MD THERE ARE GOOD VEINS NOTED ON LOWER EXTREMITY, MD OKAYED TO HAVE IV INSERTED ON LOWER EXTREMITY. MD ALSO AWARE OF POTASSIUM 3.4, ORDERED TO ENCOURAGE PATIENT TO DRINK JUICE. WILL CARRY OUT ORDERS.
--- NOTE | 2020-08-16 21:15 | NUR ---
PAGED PAGED DOCTOR MORIS ZENG IS CATERING TRUCK OPERATOR
--- NOTE | 2020-08-16 21:17 | NUR ---
SPOKE TO DR STERN RE: ULTRASOUND RESULT MADE AWARE OF PARTIAL OBSTRUCTION AT LEFT AV SHUNT, FOUND FROM ULTRASOUND. NO NEW ORDERS GIVEN.
--- NOTE | 2020-08-16 23:10 | NUR ---
POSITIVE BLOOD CULTURE DR JOHNSON MADE AWARE, BLOOD CULTURE IS POSITIVE FOR GRAM NEG RODS. ORDERS GIVEN, WILL CARRY OUT.
[2020-08-17 00:03] VITALS: BP_SYST 107
[2020-08-17] MEDS: cefTRIAXone 1 GM in D5W 50 ML IV SCH ×2 (00:14→23:59)
[2020-08-17] MEDS: NACL 0.9% 1,000 ML IV SCH ×3 (00:14→23:59)
--- NOTE | 2020-08-17 01:00 | NUR ---
ROUNDS PATIENT ASLEEP AT THIS TIME. NO S/S OF ACUTE DISTRESS NOTE. BREATHING EVEN AND UNLABORED. IVF INFUSING WELL. CALL LIGHT WITH PATIENT. BED ALARM ON. WILL CONTINUE TO MONITOR.
--- NOTE | 2020-08-17 03:00 | NUR ---
ROUNDS NO CHANGE FROM PREVIOUS CONDITION. ALL NEEDS MET. CALL LIGHT WITH PATIENT. WILL CONTINUE TO MONITOR.
--- NOTE | 2020-08-17 03:13 | NUR ---
Consultation Paged Reason for consultation: Blood Culture Gram Negative Rods Was consult called: Y Person who was notified: Bin Consulting Physician: Radiology Receptionist Ordering Physician: Dr. Huerta
--- NOTE | 2020-08-17 04:31 | NUR ---
Consultation Paged Reason for consultation: Central Line Placement Was consult called: Y Person who was notified: Donnell Consulting Physician: Solomon Izquierdo Ordering Physician: Dr. Huerta
[2020-08-17 06:17] LABS: BASOPHILS # (AUTO) 0.1 K/uL (0.0-0.2); BASOPHILS % (AUTO) 0.8 % (0.0-2.0); EOSINOPHILS # (AUTO) 0.3 K/uL (0.0-0.4); EOSINOPHILS % (AUTO) 2.2 % (0.0-4.0); HEMATOCRIT 25.6 % (36-48); HEMOGLOBIN 8.4 g/dL (12.0-16.0); LYMPHOCYTES # (AUTO) 1.5 K/uL (1.0-5.5); LYMPHOCYTES % (AUTO) 11.2 % (20.5-51.5); MEAN CORPUSCULAR HEMOGLOBIN 32 pg (27-31); MEAN CORPUSCULAR HGB CONC 33 % (32-36); MEAN CORPUSCULAR VOLUME 96 fL (79.0-98.0); MONOCYTES # (AUTO) 0.5 K/uL (0.0-1.0); MONOCYTES % (AUTO) 3.8 % (1.7-9.3); NEUTROPHILS # (AUTO) 11.3 K/uL (1.8-7.7); PLATELET COUNT (AUTO) 296 K/uL (130-430); RED BLOOD CELL COUNT(AUTO) 2.67 MIL/uL (4.2-6.2); RED CELL DISTRIBUTION WIDTH 16.7 % (9.0-15.0); WHITE BLOOD COUNT (AUTO) 13.8 K/uL (4.8-10.8)
--- NOTE | 2020-08-17 06:54 | NUR ---
CLOSING NOTE PATIENT IN BED, SLEEPING. NO S/S OF ACUTE DISTRESS NOTED. BREATHING EVEN AND UNLABORED. HOB SLIGHTLY RAISED. IVF INFUSING WELL, IV SITE IS PATENT, NO SIGNS OF INFILTRATION OR INFECTION NOTED. ALL NEEDS MET THROUGHOUT SHIFT. FALL, SAFETY PRECAUTIONS MAINTAINED THROUGHOUT SHIFT. WILL CONTINUE TO MONITOR UNTIL PATIENT CARE IS ENDORSED TO ONCOMING DAYSHIFT NURSE.
[2020-08-17 06:57] LABS: CALCIUM 7.4 mg/dL (8.4-11.0); CREATININE 5.07 mg/dL (0.55-1.30); PHOSPHORUS 2.2 mg/dL (2.7-4.5)
[2020-08-17 08:00] VITALS: BP_SYST 112
--- NOTE | 2020-08-17 08:33 | NUR ---
first seen, alert, when asked how she was doing last nite " I dont know". Author had no choice but taking her bp on the Right foot, 112/48 with hr 96 denied pain, nor discomfort. K+ 3.0, will get replaced with 40meq po when available. HL on Right foot, still works good, for now no need for central line.
[2020-08-17] MEDS ORDERED: POTASSIUM CHLORIDE 20 MEQ TAB.PRT.SR PO ONE (08:45)
[2020-08-17] MEDS: NEPHROVITE, (FOLIC ACID/VITAMIN B COMP W-C 1 TAB) PO SCH (09:36)
[2020-08-17] MEDS: ALLOPURINOL 100 MG TABLET (ZYLOPRIM) PO SCH (09:36)
[2020-08-17] MEDS: ASPIRIN 81 MG TABLET(ECOTRIN) PO SCH (09:37)
[2020-08-17] MEDS: CINACALCET HCL 30 MG TABLET PO SCH (09:37)
[2020-08-17] MEDS: PANTOPRAZOLE SODIUM 40 MG TAB PO SCH (09:37)
[2020-08-17] MEDS: CHOLECALCIFEROL (VITAMIN D3) 2,000 UNIT TABLET PO SCH (09:38)
--- NOTE | 2020-08-17 10:06 | NUR ---
Nutrition Update Catrachito Scale 17 noted. Pt admitted for hypotension. Diet: regular, 2 gm Na, renal BMI: 23.4 kg/m2 RD to follow per nutrition care standards.
[2020-08-17 11:24] VITALS: BP_SYST 96
[2020-08-17] MEDS ORDERED: K PHOS 30 MM in NS 250 ML IV ONE (15:00)
--- NOTE | 2020-08-17 15:01 | NUR ---
CONSULT VASCULAR SURGERY FISTULOGRAM DR EVELYN TOMLIN [phone] JEWEL STEINBERG PRIMER BOXER S/W GLORY EXCHANGE
[2020-08-17 15:38] VITALS: BP_SYST 102
[2020-08-17] MEDS ORDERED: GENTAMICIN 100 mg/50 mL NS 50 ML IV ONE (15:45)
--- NOTE | 2020-08-17 18:48 | NUR ---
Uneventful day, except some abnormal electrolytes, which needs replacement. KPHOS running right now, via Right foot hep lock, and gentle ivf continued. Denied pain, nor discomfort.
--- NOTE | 2020-08-17 19:15 | NUR ---
OPENING NOTE REPORT RECEIVED FROM DAYSHIFT NURSE. PATIENT RECEIVED LYING IN BED, AWAKE, NO S/S OF ACUTE DISTRESS. BREATHING EVEN AND UNLABORED. PATIENT DENIES PAIN. IVF INFUSING WELL, IV SITE PATENT, NO SIGNS OF INFILTRATION OR INFECTION NOTED. SKIN WARM AND DRY TO TOUCH. CALL LIGHT WITH PATIENT. BED ALARM ON. BED IS LOCKED AND AT LOWEST POSITION. WILL CONTINUE TO MONITOR.
[2020-08-17 20:00] VITALS: BP_SYST 110
[2020-08-17] MEDS: metroNIDAZOLE 500 mg/NS 100 ML IV SCH (20:29)
[2020-08-17] MEDS: ATORVASTATIN 20 MG TABLET PO SCH (20:29)
--- NOTE | 2020-08-17 21:00 | NUR ---
SISTER CALLED PATIENT'S SISTER CALLED, REQUESTED TO TALK TO PATIENT, FORWARDED TO BEDSIDE PHONE. PATIENT IN BED, TALKING ON PHONE WITH SISTER, ANA. NO SIGNS OF DISCOMFORT NOTED. CHEST RISE AND FALL EVEN BILATERALLY. CALL LIGHT WITH PATIENT. WILL CONTINUE TO MONITOR.
--- NOTE | 2020-08-17 23:00 | NUR ---
ROUNDS PATIENT IN BED, ASLEEP. NO S/S OF ACUTE DISTRESS. BREATHING EVEN AND UNLABORED. CALL LIGHT WITH PATIENT. BED ALARM ON. WILL CONTINUE TO MONITOR.
[2020-08-18] VITALS: BP_SYST 115
--- NOTE | 2020-08-18 01:00 | NUR ---
ROUNDS PATIENT IN BED, SLEEPING COMFORTABLY. NO CHANGE FROM PREVIOUS CONDITION. ALL NEEDS MET. BED ALARM ON. WILL CONTINUE TO MONITOR.
[2020-08-18 02:05] VITALS: BP_SYST 108
--- NOTE | 2020-08-18 03:00 | NUR ---
ROUNDS PATIENT ASLEEP. NO S/S OF ACUTE DISTRESS. BREATHING EVEN AND UNLABORED. BED ALARM ON. WILL CONTINUE TO MONITOR.
--- NOTE | 2020-08-18 06:25 | NUR ---
CLOSING NOTE PATIENT IN BED, RESTING, NO S/S OF ACUTE DISTRESS. BREATHING EVEN AND UNLABORED. HOB RAISED. IVF INFUSING WELL, IV SITE PATENT, NO SIGNS OF INFILTRATION OR INFECTION NOTED. ALL NEEDS MET THROUGHOUT SHIFT. FALL AND SAFETY PRECAUTIONS MAINTAINED THROUGHOUT SHIFT. WILL CONTINUE TO MONITOR UNTIL PATIENT CARE IS ENDORSED TO ONCOMING DAYSHIFT NURSE.
[2020-08-18 07:05] LABS: BASOPHILS # (AUTO) 0.1 K/uL (0.0-0.2); BASOPHILS % (AUTO) 0.6 % (0.0-2.0); EOSINOPHILS # (AUTO) 0.4 K/uL (0.0-0.4); EOSINOPHILS % (AUTO) 4.1 % (0.0-4.0); HEMATOCRIT 23.6 % (36-48); HEMOGLOBIN 7.9 g/dL (12.0-16.0); LYMPHOCYTES # (AUTO) 1.6 K/uL (1.0-5.5); LYMPHOCYTES % (AUTO) 16.4 % (20.5-51.5); MEAN CORPUSCULAR HEMOGLOBIN 32 pg (27-31); MEAN CORPUSCULAR HGB CONC 33 % (32-36); MEAN CORPUSCULAR VOLUME 95 fL (79.0-98.0); MONOCYTES # (AUTO) 0.8 K/uL (0.0-1.0); MONOCYTES % (AUTO) 7.8 % (1.7-9.3); NEUTROPHILS # (AUTO) 7.1 K/uL (1.8-7.7); NEUTROPHILS % (AUTO) 71.1 % (40.0-70.0); PLATELET COUNT (AUTO) 291 K/uL (130-430); RED BLOOD CELL COUNT(AUTO) 2.49 MIL/uL (4.2-6.2); RED CELL DISTRIBUTION WIDTH 16.7 % (9.0-15.0)
[2020-08-18 07:43] LABS: CREATININE 5.89 mg/dL (0.55-1.30); POTASSIUM 4.8 mmol/L (3.5-5.1)
[2020-08-18 08:00] VITALS: BP_SYST 147
[2020-08-18 08:03] LABS: CALCIUM 6.8 mg/dL (8.4-11.0)
--- NOTE | 2020-08-18 08:22 | NUR ---
TEST PILOT DR STERN, [employer]ASTE TRANSPORTATION TECHNICIAN FOR DR FLORES WAS CALLED, RE: HIGH CA LEVEL. SPOKE TO EDA.
[2020-08-18] MEDS: NEPHROVITE, (FOLIC ACID/VITAMIN B COMP W-C 1 TAB) PO SCH (08:35)
[2020-08-18] MEDS: ALLOPURINOL 100 MG TABLET (ZYLOPRIM) PO SCH (08:35)
[2020-08-18] MEDS: ASPIRIN 81 MG TABLET(ECOTRIN) PO SCH (08:35)
[2020-08-18] MEDS: PANTOPRAZOLE SODIUM 40 MG TAB PO SCH (08:35)
[2020-08-18] MEDS: metroNIDAZOLE 500 mg/NS 100 ML IV SCH ×2 (08:35→20:19)
[2020-08-18] MEDS: CINACALCET HCL 30 MG TABLET PO SCH (08:35)
[2020-08-18] MEDS: CHOLECALCIFEROL (VITAMIN D3) 2,000 UNIT TABLET PO SCH (08:36)
[2020-08-18 12:00] VITALS: BP_SYST 109
--- NOTE | 2020-08-18 13:26 | NUR ---
Dietitian Recommendations * Recommend renal diet w/ Nepro BID (ONS provides 850 kcal/day, 38 gm protein/day) * Encourage increase PO intakes LP, RD Please refer to Nutrition Assessment for details. Addendum: 08/18/20 at [address] Amended: Links added.
[2020-08-18 16:03] VITALS: BP_SYST 137
[2020-08-18] MEDS: NACL 0.9% 1,000 ML IV SCH (17:04)
--- NOTE | 2020-08-18 18:25 | NUR ---
alert, oriented, understands she is going to have dialysis today. Appetite from fair to poor today, feeder, did not eat much, but asked for lots of drink, especially grape juices. CA today 6.8, her attending made aware and no new orders. Completed 2 1/2hrs dialysis, one liter out. " very tired, just want to rest now"
[2020-08-18] MEDS ORDERED: GENTAMICIN 100 mg/50 mL NS 50 ML IV ONE ×2 (19:00→20:19)
--- NOTE | 2020-08-18 19:10 | NUR ---
OPENING NOTE REPORT RECEIVED FROM DAYSHIFT NURSE. PATIENT RECEIVED LYING IN BED, AWAKE, AOX4, DENIES PAIN. NO S/S OF ACUTE DISTRESS NOTED. BREATHING EVEN AND UNLABORED. PATIENT STATED THAT SHE JUST FEELS TIRED. HOB RAISED. IVF INFUSING WELL, IV SITE IS PATENT, NO SIGNS OF INFILTRATION OR INFECTION NOTED. CALL LIGHT WITH PATIENT. BED ALARM ON. BED IS LOCKED AND AT LOWEST POSITION. WILL CONTINUE TO MONITOR.
[2020-08-18 20:00] VITALS: BP_SYST 104
[2020-08-18] MEDS: ATORVASTATIN 20 MG TABLET PO SCH (20:19)
--- NOTE | 2020-08-18 21:00 | NUR ---
INCONTINENT CARE PATIENT HAD BOWEL MOVEMENT, CLEANED AT THIS TIME BY ACCOUNTING REPRESENTATIVE AND RN. PATIENT TOLERATED WELL. ALL NEEDS MET. BED ALARM ON. WILL CONTINUE TO MONITOR.
--- NOTE | 2020-08-18 23:00 | NUR ---
ROUNDS PATIENT ASLEEP AT THIS TIME. NO S/S OF ACUTE DISTRESS NOTED. BREATHING EVEN AND UNLABORED. CALL LIGHT WITH PATIENT. BED ALARM ON. WILL CONTINUE TO MONITOR.
[2020-08-18] MEDS: cefTRIAXone 1 GM in D5W 50 ML IV SCH (23:48)
[2020-08-19] VITALS: BP_SYST 116
--- NOTE | 2020-08-19 01:00 | NUR ---
ROUNDS PATIENT IN BED SLEEPING COMFORTABLY. NO S/S OF ACUTE DISTRESS NOTED. BREATHING EVEN AND UNLABORED. CALL LIGHT WITH PATIENT. BED ALARM ON. WILL CONTINUE TO MONITOR.
--- NOTE | 2020-08-19 03:00 | NUR ---
ROUNDS PATIENT IN BED, NO CHANGE FROM PREVIOUS CONDITION. ALL NEEDS MET. BED ALARM ON. WILL CONTINUE TO MONITOR.
--- NOTE | 2020-08-19 06:53 | NUR ---
CLOSING NOTE PATIENT IN BED, SLEEPING COMFORTABLY, NO S/S OF ACUTE DISTRESS NOTED. BREATHING EVEN AND UNLABORED. HOB SLIGHTLY RAISED. IVF INFUSING WELL, IV SITE IS PATENT, NO SIGNS OF INFILTRATION OR INFECTION NOTED. DRESSING ON LEFT ARM INTACT, CLEAN, AND DRY. ALL NEEDS MET THROUGHOUT SHIFT. FALL AND SAFETY PRECAUTIONS MAINTAINED THROUGHOUT SHIFT. WILL CONTINUE TO MONITOR UNTIL PATIENT CARE IS ENDORSED TO ONCOMING DAYSHIFT NURSE.
[2020-08-19] MEDS: NACL 0.9% 1,000 ML IV SCH ×2 (08:04→20:14)
[2020-08-19] MEDS ORDERED: MAGNESIUM SULFATE 1 GM/2 ML VIAL IVP ONE (08:15)
[2020-08-19] MEDS ORDERED: MAGNESIUM SUL 2 GM/50 ML PREMIX IV ONE (08:45)
[2020-08-19] MEDS: CINACALCET HCL 30 MG TABLET PO SCH (09:22)
[2020-08-19] MEDS: CHOLECALCIFEROL (VITAMIN D3) 2,000 UNIT TABLET PO SCH (09:22)
[2020-08-19] MEDS: ALLOPURINOL 100 MG TABLET (ZYLOPRIM) PO SCH (09:22)
[2020-08-19] MEDS: NEPHROVITE, (FOLIC ACID/VITAMIN B COMP W-C 1 TAB) PO SCH (09:22)
[2020-08-19] MEDS: ASPIRIN 81 MG TABLET(ECOTRIN) PO SCH (09:22)
[2020-08-19] MEDS: PANTOPRAZOLE SODIUM 40 MG TAB PO SCH (09:22)
[2020-08-19] MEDS: metroNIDAZOLE 500 mg/NS 100 ML IV SCH ×2 (09:22→20:14)
--- NOTE | 2020-08-19 11:20 | NUR ---
alert, oriented, awake, did not eat much as usual, feeder. Per NA's report, about 5% of breakfast. Seen by nephro, MGSO4, 2mg ivpb given. HD ordered for tomorrow 08/20, patient aware
[2020-08-19 11:29] VITALS: BP_SYST 106
[2020-08-19 16:09] VITALS: BP_SYST 125
[2020-08-19 16:52] LABS: CREATININE 4.6 mg/dL (0.55-1.30); POTASSIUM 4.1 mmol/L (3.5-5.1)
[2020-08-19 16:56] LABS: CALCIUM 6.8 mg/dL (8.4-11.0)
--- NOTE | 2020-08-19 17:23 | NUR ---
CA today 6.8, attending made aware, no new orders . incontinent, had one bm, but no urine noted.
--- NOTE | 2020-08-19 19:15 | NUR ---
OPENING NOTE REPORT RECEIVED FROM DAYSHIFT NURSE. PATIENT RECEIVED LYING IN BED, AWAKE, AOX4, NO S/S OF ACUTE DISTRESS NOTED. BREATHING EVEN AND UNLABORED. HOB RAISED. IVF INFUSING WELL, IV SITE IS PATENT, NO SIGNS OF INFILTRATION OR INFECTION NOTED. PATIENT DENIES PAIN OR SOB. CALL LIGHT WITH PATIENT. BED ALARM ON. BED IS LOCKED AND AT LOWEST POSITION. WILL CONTINUE TO MONITOR.
[2020-08-19 20:00] VITALS: BP_SYST 104
[2020-08-19] MEDS: MEGESTROL ACETATE 400 MG/10 ML UDC PO SCH (20:13)
[2020-08-19] MEDS: ATORVASTATIN 20 MG TABLET PO SCH (20:13)
--- NOTE | 2020-08-19 21:00 | NUR ---
[facility] SCHEDULED MEDICATIONS ADMINISTERED AT THIS TIME. HOB RAISED, NO S/S OF ACUTE DISTRESS NOTED. BREATHING EVEN AND UNLABORED. BED ALARM ON. WILL CONTINUE TO MONITOR.
--- NOTE | 2020-08-19 23:00 | NUR ---
PERICARE PATIENT CLEANED AT THIS TIME. PATIENT TOLERATED WELL. ALL NEEDS MET. BED ALARM ON. WILL CONTINUE TO MONITOR.
[2020-08-19] MEDS: cefTRIAXone 1 GM in D5W 50 ML IV SCH (23:55)
[2020-08-20] VITALS: BP_SYST 108
--- NOTE | 2020-08-20 01:00 | NUR ---
ROUNDS PATIENT IN BED, SLEEPING COMFORTABLY. NO S/S OF ACUTE DISTRESS NOTED. BREATHING EVEN AND UNLABORED. WILL CONTINUE TO MONITOR.
--- NOTE | 2020-08-20 03:00 | NUR ---
ROUNDS PATIENT IN BED, SLEEPING, NO CHANGE FROM PREVIOUS CONDITION. ALL NEEDS MET. BED ALARM ON,. WILL CONTINUE TO MONITOR.
--- NOTE | 2020-08-20 05:00 | NUR ---
ROUNDS PATIENT IN BED ASLEEP. NO SIGNS OF DISCOMFORT. CHEST RISE AND FALL EVEN BILATERALLY. BED ALARM ON. WILL CONTINUE TO MONITOR.
--- NOTE | 2020-08-20 06:31 | NUR ---
CLOSING NOTE PATIENT IN BED, SLEEPING COMFORTABLY, NO S/S OF ACUTE DISTRESS NOTED. BREATHING IS EVEN AND UNLABORED. IVF INFUSING WELL, IV SITE PATENT, NO SIGNS OF INFILTRATION OR INFECTION NOTED. ALL NEEDS MET. BED ALARM ON. WILL CONTINUE TO MONITOR UNTIL PATIENT CARE IS ENDORSED TO ONCOMING DAYSHIFT NURSE.
[2020-08-20 06:43] LABS: BASOPHILS # (AUTO) 0.1 K/uL (0.0-0.2); BASOPHILS % (AUTO) 1.1 % (0.0-2.0); EOSINOPHILS # (AUTO) 0.4 K/uL (0.0-0.4); EOSINOPHILS % (AUTO) 4.1 % (0.0-4.0); HEMATOCRIT 22.5 % (36-48); HEMOGLOBIN 7.3 g/dL (12.0-16.0); LYMPHOCYTES # (AUTO) 1.3 K/uL (1.0-5.5); LYMPHOCYTES % (AUTO) 12.2 % (20.5-51.5); MEAN CORPUSCULAR HEMOGLOBIN 31 pg (27-31); MEAN CORPUSCULAR HGB CONC 33 % (32-36); MEAN CORPUSCULAR VOLUME 95 fL (79.0-98.0); MONOCYTES # (AUTO) 0.6 K/uL (0.0-1.0); MONOCYTES % (AUTO) 5.8 % (1.7-9.3); NEUTROPHILS # (AUTO) 8.1 K/uL (1.8-7.7); NEUTROPHILS % (AUTO) 76.8 % (40.0-70.0); PLATELET COUNT (AUTO) 332 K/uL (130-430); RED BLOOD CELL COUNT(AUTO) 2.36 MIL/uL (4.2-6.2); RED CELL DISTRIBUTION WIDTH 16.5 % (9.0-15.0); WHITE BLOOD COUNT (AUTO) 10.6 K/uL (4.8-10.8)
[2020-08-20 08:03] LABS: CALCIUM 7.1 mg/dL (8.4-11.0); CREATININE 5.02 mg/dL (0.55-1.30); POTASSIUM 3.7 mmol/L (3.5-5.1)
--- NOTE | 2020-08-20 08:40 | NUR ---
Medication given and tolerates well , refused to be fed , ate 40% breakfast no aspiration , needs attended, had loose bowel movement skin cream barrier applied . left arm AV shunt dressing dry/intact.
[2020-08-20 08:41] VITALS: BP_SYST 152
[2020-08-20] MEDS: metroNIDAZOLE 500 mg/NS 100 ML IV SCH ×2 (08:43→20:46)
[2020-08-20] MEDS: ASPIRIN 81 MG TABLET(ECOTRIN) PO SCH (08:44)
[2020-08-20] MEDS: CINACALCET HCL 30 MG TABLET PO SCH (08:44)
[2020-08-20] MEDS: CHOLECALCIFEROL (VITAMIN D3) 2,000 UNIT TABLET PO SCH (08:44)
[2020-08-20] MEDS: ALLOPURINOL 100 MG TABLET (ZYLOPRIM) PO SCH (08:44)
[2020-08-20] MEDS: MEGESTROL ACETATE 400 MG/10 ML UDC PO SCH ×2 (08:44→20:46)
[2020-08-20] MEDS: NEPHROVITE, (FOLIC ACID/VITAMIN B COMP W-C 1 TAB) PO SCH (08:44)
[2020-08-20] MEDS: PANTOPRAZOLE SODIUM 40 MG TAB PO SCH (08:45)
[2020-08-20 11:30] VITALS: BP_SYST 127
--- NOTE | 2020-08-20 12:15 | NUR ---
Hemodialysis started vitals sign monitored by HD nurse.
[2020-08-20 13:24] LABS: TOTAL IRON BIND. CAPACITY 102 ug/dL (250-450)
[2020-08-20 13:43] LABS: GENTAMICIN,RANDOM 5.9 ug/mL
[2020-08-20 15:36] VITALS: BP_SYST 133; BP_SYST 144
--- NOTE | 2020-08-20 15:37 | NUR ---
Hemodialysis completed vitals sign wnl , output 1 liter.
--- NOTE | 2020-08-20 16:30 | NUR ---
GI/SKIN CARE COMFORT Had a bowel movement moderate amount semi form stool ,perineal care given ,with old scar buttock skin intact skin cream barrier applied repositioned , BLE supported by pillow ., safety/fall precaution initiated.
[2020-08-20] MEDS: EPOETIN ALFA 10,000 UNITS/ML VIAL SUBCUT SCH (17:32)
[2020-08-20 19:30] VITALS: BP_SYST 120
--- NOTE | 2020-08-20 19:30 | NUR ---
INITIAL NOTE PATIENT IS STABLE AND LAYING IN BED. NO S/S OF RESPIRATORY DISTRESS NOTED. CALL LIGHT IN REACH. PATIENT SUCCESSFULLY DEMONSTRATES USAGE OF CALL LIGHT. BED IS LOCKED, ALARMED, AND AT THE LOWEST POSITION. FALL, SAFETY, ASPIRATION, AND RESPIRATORY PRECAUTIONS WILL BE IN PLACE THROUGHOUT THE SHIFT. PLAN OF CARE IS DISCUSSED WITH PATIENT.
[2020-08-20] MEDS: ATORVASTATIN 20 MG TABLET PO SCH (20:46)
--- NOTE | 2020-08-20 22:30 | NUR ---
DR. JOHNSON BY BEDSIDE.
[2020-08-20] MEDS ORDERED: SOD FERRIC GLUC COMPLEX/SUC 62.5 MG/5 ML VIAL (FERRLECIT) IV ONE (23:04)
[2020-08-20] MEDS: cefTRIAXone 1 GM in D5W 50 ML IV SCH (23:26)
[2020-08-21] VITALS: BP_SYST 114
--- NOTE | 2020-08-21 | NUR ---
PATIENT IS STABLE AND WATCHING TV IN BED. NO S/S OF RESPIRATORY DISTRESS NOTED. CALL LIGHT IN REACH.
[2020-08-21] MEDS: SOD FERRIC GLUC COMPLEX/SUC 125 MG in NS 100 ML IV SCH ×2 (00:13→22:33)
--- NOTE | 2020-08-21 02:00 | NUR ---
WOUND CARE PERFORMED AT THIS TIME USING STERILE TECHNIQUE. PATIENT TOLERATED WELL. NO S/S OF RESPIRATORY DISTRESS NOTED. CALL LIGHT IN REACH.
--- NOTE | 2020-08-21 06:50 | NUR ---
CLOSING NOTE PATIENT IS STABLE AND IN BED. NO S/S OF RESPIRATORY DISTRESS NOTED. CALL LIGHT IN REACH. BED IS LOCKED, ALARMED, AND AT THE LOWEST POSITION. FALL, SAFETY, ASPIRATION, AND RESPIRATORY PRECAUTIONS HAS BEEN IN PLACE THROUGHOUT THE SHIFT. PLAN OF CARE IS DISCUSSED WITH PATIENT. WILL CONTINUE CONTINUE TO MONITOR UNTIL SBAR REPORT IS ENDORSED TO AM NURSE.
--- NOTE | 2020-08-21 07:30 | NUR ---
OPENING NOTES: RECEIVED PATIENT FROM IMCU SPECIALIST NURSE. PATIENT IS AWAKE AND ALERT x4 LAYING DOWN IN BED. PATIENT IS TOLERATING OXYGEN ON ROOM AIR WITH NO SIGNS OF DISTRESS OR SHORTNESS OF BREATH NOTED. IV SITE IS PATENT WITH NO SIGNS OF INFILTRATION NOTED. PATIENT DENIES ANY PAIN AT THE MOMENT. PATIENT IN STABLE CONDITION. SAFETY, FALL, AND ASPIRATION PRECAUTIONS ARE IN PLACE. BED LOCKED IN LOWEST POSITION WITH CALL LIGHT IN REACH. WILL CONTINUE TO MONITOR PATIENT FOR ANY CHANGES.
[2020-08-21 08:00] VITALS: BP_SYST 128
[2020-08-21] MEDS: MEGESTROL ACETATE 400 MG/10 ML UDC PO SCH ×2 (08:29→20:49)
[2020-08-21] MEDS: metroNIDAZOLE 500 mg/NS 100 ML IV SCH ×2 (08:29→20:49)
[2020-08-21] MEDS: ASPIRIN 81 MG TABLET(ECOTRIN) PO SCH (08:30)
[2020-08-21] MEDS: CHOLECALCIFEROL (VITAMIN D3) 2,000 UNIT TABLET PO SCH (08:30)
[2020-08-21] MEDS: CINACALCET HCL 30 MG TABLET PO SCH (08:30)
[2020-08-21] MEDS: ALLOPURINOL 100 MG TABLET (ZYLOPRIM) PO SCH (08:30)
[2020-08-21] MEDS: PANTOPRAZOLE SODIUM 40 MG TAB PO SCH (08:30)
[2020-08-21] MEDS: NEPHROVITE, (FOLIC ACID/VITAMIN B COMP W-C 1 TAB) PO SCH (08:30)
[2020-08-21 09:09] LABS: FOLATE (FOLIC ACID) >20.0 ng/mL (>3.0)
--- NOTE | 2020-08-21 10:07 | NUR ---
RN ROUNDS: PATIENT IS AWAKE AND ALERT x4 LAYING DOWN IN BED. PATIENT IS TOLERATING OXYGEN ON ROOM AIR WITH NO SIGNS OF DISTRESS OR SHORTNESS OF BREATH NOTED. PATIENT DENIES ANY PAIN AT THE MOMENT. PATIENT WAS TURNED AND REPOSITIONED IN BED. PATIENT TOLERATED IT WELL. PATIENT IN STABLE CONDITION. WILL CONTINUE TO MONITOR PATIENT FOR ANY CHANGES.
[2020-08-21 11:26] VITALS: BP_SYST 122
--- NOTE | 2020-08-21 12:39 | NUR ---
RN ROUNDS: PATIENT IS ASLEEP LAYING DOWN IN BED. PATIENT IS TOLERATING OXYGEN ON ROOM AIR WITH NO SIGNS OF DISTRESS OR SHORTNESS OF BREATH NOTED. IV SITE IS PATENT WITH NO SIGNS OF INFILTRATION NOTED. PATIENT IN STABLE CONDITION. WILL CONTINUE TO MONITOR PATIENT FOR ANY CHANGES.
--- NOTE | 2020-08-21 12:43 | NUR ---
LABS: RESISTANCE WELDING MACHINE OPERATOR UNABLE TO DRAW MORNING LABS. WILL INFORM
--- NOTE | 2020-08-21 15:20 | NUR ---
WOUND EVALUATION: Wound Consult received from Dr. Huerta. Thank you, Dr. Huerta, for the consult. Patient received in a [place] Bed with a mattress, awake, alert, and oriented. Patient is unable to turn independently. Catrachito Score is a 13. Past Medical History: Hypertension, CVA with right side hemiplegia, End-Stage Renal Failure on Hemodialysis. Recent Labs: WBC 10.6, RBC 2.36, hemoglobin 7.3, hematocrit 22.5, BUN 23, creatinine 5.02, GFR 11, calcium 7.1, iron 33, TIBC 102, albumin 2.5, alkaline phosphatase 146, PTT 25.2. Microbiology: Blood culture results x2+ for Serratia marcescens. MRSA screen results negative. Blood culture results x2 in progress. Intrinsic factors that delay wound healing: Hypoglycemia, End-Stage Renal Failure. Extrinsic factors that delay wound healing: Decreased mobility. Wound Assessment: 1. Left Upper Arm AV Shunt site, distal third: Dehisced chronic surgical AV Shunt site, present on admission. Site has 100% white graft tissue. No odor, no drainage. Periwound intact. Wound measures 0.8 cm x 0.5 cm. 2. Left Upper Arm AV Shunt site, distal third, inferior to site 1: Dehisced chronic surgical AV Shunt site, present on admission. Site has 100% white graft tissue. No odor, no drainage. Periwound intact. Wound measures 1.0 cm x 0.8 cm. Recommend wound care with sterile technique: Cleanse wounds with normal saline. Apply SurePrep to jj-wounds. Cover with foam dressing. Perform wound care daily, and as needed for dressing soiling or dislodgement. Also recommend: Encourage and assist patient with repositioning every 2 hours with pillow support and off-load pressure areas with pillows for pressure re-distribution. Offload, elevate and float bilateral heels with pillows. Perform skin care and monitor skin integrity Q shift. Use moisture barrier cream on buttocks and other moisture susceptible areas QID and as needed for soiling. Place patient on a low air-loss mattress.
[2020-08-21 15:28] VITALS: BP_SYST 98
--- NOTE | 2020-08-21 16:22 | NUR ---
RN ROUNDS: PATIENT IS AWAKE AND ALERT X4 LAYING DOWN IN BED. PATIENT WAS REPOSITIONED AND TOLERATED IT WELL. PATIENT IS TOLERATING OXYGEN ON ROOM AIR. WITH NO SIGNS OF DISTRESS NOTED. IV SITE PATENT. NO SIGNS OF INFILTRATION NOTED. PATIENT IN STABLE CONDITION. WILL CONTINUE TO MONITOR FOR ANY CHANGES.
--- NOTE | 2020-08-21 18:33 | NUR ---
CLOSING NOTES: PATIENT IS ASLEEP LAYING DOWN IN BED. PATIENT IS TOLERATING OXYGEN ON ROOM AIR WITH NO SIGNS OF DISTRESS OR SHORTNESS OF BREATH NOTED. IV SITE IS PATENT WITH NO SIGNS OF INFILTRATION NOTED. PATIENT DENIES ANY PAIN AT THE MOMENT. PATIENT IN STABLE CONDITION. SAFETY, FALL, AND ASPIRATION PRECAUTIONS REMAINED IN PLACE THROUGHOUT THE SHIFT. BED LOCKED IN LOWEST POSITION WITH CALL LIGHT IN REACH. WILL ENDORSE PATIENT CARE TO ONCOMING RN SOCIAL SERVICES NURSE.
[2020-08-21 19:56] VITALS: BP_SYST 127
[2020-08-21] MEDS: ATORVASTATIN 20 MG TABLET PO SCH (20:49)
[2020-08-21] MEDS: cefTRIAXone 1 GM in D5W 50 ML IV SCH (21:31)
[2020-08-22 00:13] VITALS: BP_SYST 83
[2020-08-22 04:18] VITALS: BP_SYST 112
--- NOTE | 2020-08-22 07:25 | NUR ---
Handoff with day team nurse Julia Mackey RN. Uziel Brooks RN
--- NOTE | 2020-08-22 07:30 | NUR ---
OPENING NOTES: RECEIVED PATIENT FROM SURGEON CHIEF NURSE. PATIENT IS ASLEEP LAYING DOWN IN BED. PATIENT IS TOLERATING OXYGEN ON ROOM AIR WITH NO SIGNS OF DISTRESS OR SHORTNESS OF BREATH NOTED. IV SITE IS PATENT WITH NO SIGNS OF INFILTRATION NOTED. PATIENT IN STABLE CONDITION. SAFETY, FALL, AND ASPIRATION PRECAUTIONS ARE IN PLACE. BED LOCKED IN LOWEST POSITION WITH CALL LIGHT IN REACH. WILL CONTINUE TO MONITOR PATIENT FOR ANY CHANGES.
[2020-08-22] MEDS: MEGESTROL ACETATE 400 MG/10 ML UDC PO SCH ×2 (08:05→21:55)
[2020-08-22] MEDS: metroNIDAZOLE 500 mg/NS 100 ML IV SCH ×2 (08:05→21:52)
[2020-08-22] MEDS: ALLOPURINOL 100 MG TABLET (ZYLOPRIM) PO SCH (08:06)
[2020-08-22] MEDS: ASPIRIN 81 MG TABLET(ECOTRIN) PO SCH (08:06)
[2020-08-22] MEDS: CINACALCET HCL 30 MG TABLET PO SCH (08:06)
[2020-08-22] MEDS: CHOLECALCIFEROL (VITAMIN D3) 2,000 UNIT TABLET PO SCH (08:07)
[2020-08-22] MEDS: NEPHROVITE, (FOLIC ACID/VITAMIN B COMP W-C 1 TAB) PO SCH (08:07)
[2020-08-22] MEDS: PANTOPRAZOLE SODIUM 40 MG TAB PO SCH (08:07)
[2020-08-22 08:52] LABS: ALBUMIN 1.9 g/dL (3.4-4.8); CREATININE 5.02 mg/dL (0.55-1.30); PHOSPHORUS 2.5 mg/dL (2.7-4.5); TOTAL BILIRUBIN 0.4 mg/dL (0.0-1.0)
[2020-08-22 08:54] VITALS: BP_SYST 95
[2020-08-22 09:05] LABS: BASOPHILS # (AUTO) 0.1 K/uL (0.0-0.2); BASOPHILS % (AUTO) 0.9 % (0.0-2.0); EOSINOPHILS # (AUTO) 0.1 K/uL (0.0-0.4); EOSINOPHILS % (AUTO) 1.5 % (0.0-4.0); LYMPHOCYTES # (AUTO) 1.4 K/uL (1.0-5.5); LYMPHOCYTES % (AUTO) 15.1 % (20.5-51.5); MEAN CORPUSCULAR HEMOGLOBIN 31 pg (27-31); MEAN CORPUSCULAR HGB CONC 33 % (32-36); MEAN CORPUSCULAR VOLUME 95 fL (79.0-98.0); MONOCYTES # (AUTO) 0.5 K/uL (0.0-1.0); MONOCYTES % (AUTO) 5.5 % (1.7-9.3); NEUTROPHILS # (AUTO) 7.1 K/uL (1.8-7.7); PLATELET COUNT (AUTO) 344 K/uL (130-430); RED BLOOD CELL COUNT(AUTO) 2.07 MIL/uL (4.2-6.2); RED CELL DISTRIBUTION WIDTH 16.5 % (9.0-15.0); WHITE BLOOD COUNT (AUTO) 9.2 K/uL (4.8-10.8)
[2020-08-22 09:14] LABS: HEMATOCRIT 19.7 % (36-48); HEMOGLOBIN 6.5 g/dL (12.0-16.0)
[2020-08-22 09:24] LABS: POTASSIUM 2.9 mmol/L (3.5-5.1)
[2020-08-22] MEDS ORDERED: POTASSIUM CHLORIDE 20 MEQ TAB.PRT.SR PO ONE (09:30)
[2020-08-22 09:35] LABS: GENTAMICIN,RANDOM 2.7 ug/mL
--- NOTE | 2020-08-22 10:34 | NUR ---
RN ROUNDS: PATIENT IS AWAKE, ALERT LAYING IN BED X3. PATIENT IS TOLERATING OXYGEN ON ROOM AIR WITH NO SIGNS OF DISTRESS OR SHORTNESS OF BREATH NOTED. CENTRAL LINE INTACT WITH CLEAN, DRY DRESSING. PATIENT IN STABLE CONDITION. WILL CONTINUE TO MONITOR PATIENT FOR ANY CHANGES. Addendum: 08/22/20 at 1042 by Julia Mackey RN IV SITE IS PATENT WITH NO SIGNS OF INFILTRATION NOTED. NO CENTRAL LINE IN PLACE.
[2020-08-22 11:01] VITALS: BP_SYST 98
--- NOTE | 2020-08-22 12:00 | NUR ---
RN ROUNDS/WOUND CARE: PATIENT IS AWAKE AND ALERT x4 LAYING DOWN IN BED. PATIENT IS TOLERATING OXYGEN ON ROOM AIR WITH NO SIGNS OF DISTRESS OR SHORTNESS OF BREATH NOTED. WOUND CARE PERFORMED AT THIS TIME. STERILE TECHNIQUE USED. PATIENT TOLERATED IT WELL. PATIENT IN STABLE CONDITION. WILL CONTINUE TO MONITOR PATIENT FOR ANY CHANGES.
[2020-08-22] MEDS ORDERED: ALBUMIN HUMAN 25% 200 ML IV ONE (13:00)
--- NOTE | 2020-08-22 14:15 | NUR ---
DIALYSIS: DIALYSIS STARTED. DIALYSIS NURSE AT BEDSIDE. PATIENT IN STABLE CONDITION.
--- NOTE | 2020-08-22 14:26 | NUR ---
RN ROUNDS: PATIENT IS ASLEEP LAYING DOWN IN BED BUT AROUSABLE TO VOICE. PATIENT IS TOLERATING OXYGEN ON ROOM AIR WITH NO SIGNS OF DISTRESS OR SHORTNESS OF BREATH. PATIENT DENIES ANY PAIN AT THE MOMENT. IV SITE PATENT WITH NO SIGNS OF INFILTRATION NOTED. PATIENT WAS TURNED AND REPOSITIONED IN BED. PATIENT TOLERATED IT WELL. PATIENT IS IN STABLE CONDITION. WILL CONTINUE TO MONITOR PATIENT FOR ANY CHANGES.
[2020-08-22 15:40] LABS: FERRITIN 1687 ng/mL (15-150)
[2020-08-22 16:00] VITALS: BP_SYST 107
--- NOTE | 2020-08-22 16:35 | NUR ---
RN ROUNDS: PATIENT IS ASLEEP LAYING DOWN IN BED. PATIENT IS TOLERATING OXYGEN ON ROOM AIR WITH NO SIGNS OF DISTRESS OR SHORTNESS OF BREATH NOTED. PATIENT DENIES ANY PAIN AT THE MOMENT. PATIENT WAS TURNED AND REPOSITIONED IN BED. PATIENT TOLERATED IT WELL. IV SITE IS PATENT WITH NO SIGNS OF INFILTRATION NOTED. PATIENT IN STABLE CONDITION. WILL CONTINUE TO MONITOR PATIENT FOR ANY CHANGES.
[2020-08-22] MEDS: EPOETIN ALFA 10,000 UNITS/ML VIAL SUBCUT SCH (17:07)
--- NOTE | 2020-08-22 17:15 | NUR ---
DIALYSIS: DIALYSIS ENDED. TWO LITERS REMOVED. PATIENT IN STABLE CONDITION. PATIENT WAS SET UP TO EAT DINNER. WILL CONTINUE TO MONITOR PATIENT.
--- NOTE | 2020-08-22 18:39 | NUR ---
CLOSING NOTES: PATIENT IS AWAKE AND ALERT x4 LAYING DOWN IN BED. PATIENT IS TOLERATING OXYGEN ON ROOM AIR WITH NO SIGNS OF DISTRESS OR SHORTNESS OF BREATH NOTED. IV SITE IS PATENT WITH NO SIGNS OF INFILTRATION NOTED. PATIENT IN STABLE CONDITION. SAFETY, FALL, AND ASPIRATION PRECAUTIONS REMAINED IN PLACE THROUGHOUT THE SHIFT. BED LOCKED IN LOWEST POSITION WITH CALL LIGHT IN REACH. WILL ENDORSE PATIENT CARE TO ONCOMING LIDAR SCIENTIST NURSE.
[2020-08-22 20:38] VITALS: BP_SYST 112
[2020-08-22] MEDS: ATORVASTATIN 20 MG TABLET PO SCH (21:55)
[2020-08-22] MEDS: SOD FERRIC GLUC COMPLEX/SUC 125 MG in NS 100 ML IV SCH (23:00)
[2020-08-22] MEDS: cefTRIAXone 1 GM in D5W 50 ML IV SCH (23:01)
[2020-08-23 03:20] VITALS: BP_SYST 104
--- NOTE | 2020-08-23 07:23 | NUR ---
Handoff with Julia Mackey RN. Uziel Brooks RN
--- NOTE | 2020-08-23 07:35 | NUR ---
OPENING NOTES: RECEIVED PATIENT FROM PATIENT REGISTRATION REPRESENTATIVE NURSE. PATIENT IS AWAKE AND ALERT x4 LAYING DOWN IN BED. PATIENT IS TOLERATING OXYGEN ON ROOM AIR WITH NO SIGNS OF DISTRESS OR SHORTNESS OF BREATH NOTED. IV SITE IS PATENT WITH NO SIGNS OF INFILTRATION NOTED. PATIENT DENIES ANY PAIN AT THE MOMENT. PATIENT IN STABLE CONDITION. SAFETY, FALL, AND ASPIRATION PRECAUTIONS ARE IN PLACE. BED LOCKED IN LOWEST POSITION WITH CALL LIGHT IN REACH. WILL CONTINUE TO MONITOR PATIENT FOR ANY CHANGES.
[2020-08-23 08:00] VITALS: BP_SYST 112
[2020-08-23] MEDS: NEPHROVITE, (FOLIC ACID/VITAMIN B COMP W-C 1 TAB) PO SCH (09:27)
[2020-08-23] MEDS: ALLOPURINOL 100 MG TABLET (ZYLOPRIM) PO SCH (09:27)
[2020-08-23] MEDS: ASPIRIN 81 MG TABLET(ECOTRIN) PO SCH (09:27)
[2020-08-23] MEDS: metroNIDAZOLE 500 mg/NS 100 ML IV SCH (09:27)
[2020-08-23] MEDS: CHOLECALCIFEROL (VITAMIN D3) 2,000 UNIT TABLET PO SCH (09:27)
[2020-08-23] MEDS: PANTOPRAZOLE SODIUM 40 MG TAB PO SCH (09:27)
[2020-08-23] MEDS: MEGESTROL ACETATE 400 MG/10 ML UDC PO SCH ×2 (09:27→21:28)
[2020-08-23] MEDS: CINACALCET HCL 30 MG TABLET PO SCH (09:27)
--- NOTE | 2020-08-23 10:20 | NUR ---
RN ROUNDS: PATIENT IS AWAKE AND ALERT x4 LAYING DOWN IN BED. PATIENT IS TOLERATING OXYGEN ON ROOM AIR WITH NO SIGNS OF DISTRESS OR SHORTNESS OF BREATH NOTED. IV SITE IS PATENT WITH NO SIGNS OF INFILTRATION NOTED. PATIENT IN STABLE CONDITION. WILL CONTINUE TO MONITOR PATIENT FOR ANY CHANGES.
[2020-08-23 12:00] VITALS: BP_SYST 96
--- NOTE | 2020-08-23 12:20 | NUR ---
RN ROUNDS: PATIENT IS ASLEEP LAYING DOWN IN BED. PATIENT IS TOLERATING OXYGEN ON ROOM AIR WITH NO SIGNS OF DISTRESS OR SHORTNESS OF BREATH NOTED. PATIENT IN STABLE CONDITION. WILL CONTINUE TO MONITOR PATIENT FOR ANY CHANGES.
--- NOTE | 2020-08-23 14:10 | NUR ---
RN ROUNDS: PATIENT IS AWAKE AND ALERT x4 SITTING UP IN BED EATING. PATIENT IS TOLERATING OXYGEN ON ROOM AIR WITH NO SIGNS OF DISTRESS OR SHORTNESS OF BREATH NOTED. IV SITE IS PATENT WITH NO SIGNS OF INFILTRATION NOTED. PATIENT IN STABLE CONDITION. WILL CONTINUE TO MONITOR PATIENT FOR ANY CHANGES.
--- NOTE | 2020-08-23 15:00 | NUR ---
Discharge Planning: DCP faxed pt refferral to [facility] (f [phone] p [phone]) DCP to follow up Addendum: 08/23/20 at 1558 by Rosetta Batuista DP DCP spoke to Scarlett at [facility] p [phone]) Pending auth.
--- NOTE | 2020-08-23 16:13 | NUR ---
RN ROUNDS: PATIENT IS AWAKE AND ALERT X4 LAYING DOWN IN BED. PATIENT DENIES ANY PAIN AT THE MOMENT. PATIENT IS TOLERATING OXYGEN ON ROOM AIR WITH NO SIGNS OF DISTRESS OR SHORTNESS OF BREATH NOTED. PATIENT IN STABLE CONDITION. WILL CONTINUE TO MONITOR PATIENT FOR ANY CHANGES.
[2020-08-23 16:21] VITALS: BP_SYST 123
[2020-08-23 16:45] LABS: ALBUMIN 2.4 g/dL (3.4-4.8); PHOSPHORUS 1.3 mg/dL (2.7-4.5); TOTAL BILIRUBIN 0.6 mg/dL (0.0-1.0)
[2020-08-23 17:41] LABS: POTASSIUM 2.9 mmol/L (3.5-5.1)
--- NOTE | 2020-08-23 17:41 | NUR ---
HIGH ALERT NOTE: Called Dr. Puckett back at identified within the medical roster to verify physician authenticity for k-rider order.
[2020-08-23 17:43] LABS: CALCIUM 7.1 mg/dL (8.4-11.0)
[2020-08-23 17:45] LABS: CREATININE 3.96 mg/dL (0.55-1.30)
[2020-08-23] MEDS ORDERED: POTASSIUM CHLORIDE IV ONE (18:00)
[2020-08-23] MEDS ORDERED: NS IV ONE (18:00)
[2020-08-23] MEDS ORDERED: LIDOCAINE JECT IV ONE (18:00)
--- NOTE | 2020-08-23 18:24 | NUR ---
CLOSING NOTES: PATIENT IS AWAKE AND ALERT x4 LAYING DOWN IN BED. PATIENT DENIES ANY PAIN AT THE MOMENT. PATIENT IS TOLERATING OXYGEN ON ROOM AIR WITH NO SIGNS OF DISTRESS OR SHORTNESS OF BREATH NOTED. IV SITE IS PATENT WITH NO SIGNS OF INFILTRATION NOTED. PATIENT IN STABLE CONDITION. SAFETY, FALL, AND ASPIRATION PRECAUTIONS REMAINED IN PLACE THROUGHOUT THE SHIFT. BED LOCKED IN LOWEST POSITION WITH CALL LIGHT IN REACH. WILL ENDORSE PATIENT CARE TO ONCOMING NURSERY LABORER NURSE.
[2020-08-23] MEDS: cefTRIAXone 1 GM in D5W 50 ML IV SCH (18:40)
[2020-08-23 19:46] LABS: BASOPHILS # (AUTO) 0.1 K/uL (0.0-0.2); BASOPHILS % (AUTO) 0.6 % (0.0-2.0); EOSINOPHILS # (AUTO) 0.1 K/uL (0.0-0.4); EOSINOPHILS % (AUTO) 1.1 % (0.0-4.0); HEMATOCRIT 35.1 % (36-48); HEMOGLOBIN 11.3 g/dL (12.0-16.0); LYMPHOCYTES # (AUTO) 1.6 K/uL (1.0-5.5); LYMPHOCYTES % (AUTO) 13.5 % (20.5-51.5); MEAN CORPUSCULAR HEMOGLOBIN 30 pg (27-31); MEAN CORPUSCULAR HGB CONC 32 % (32-36); MEAN CORPUSCULAR VOLUME 92 fL (79.0-98.0); MONOCYTES # (AUTO) 1.1 K/uL (0.0-1.0); MONOCYTES % (AUTO) 9.1 % (1.7-9.3); NEUTROPHILS # (AUTO) 9.1 K/uL (1.8-7.7); NEUTROPHILS % (AUTO) 75.7 % (40.0-70.0); PLATELET COUNT (AUTO) 378 K/uL (130-430); RED BLOOD CELL COUNT(AUTO) 3.82 MIL/uL (4.2-6.2); RED CELL DISTRIBUTION WIDTH 17.1 % (9.0-15.0)
[2020-08-23 20:57] VITALS: BP_SYST 80
[2020-08-23] MEDS: ATORVASTATIN 20 MG TABLET PO SCH ×2 (21:00→22:41)
[2020-08-23] MEDS: SOD FERRIC GLUC COMPLEX/SUC 125 MG in NS 100 ML IV SCH (22:30)
[2020-08-24 02:35] VITALS: BP_SYST 100
--- NOTE | 2020-08-24 07:22 | NUR ---
Handoff with DEONNA Baugh. Uziel Brooks RN
[2020-08-24 08:00] VITALS: BP_SYST 121
[2020-08-24] MEDS ORDERED: NAPH,MB-DB/K PH,MBDB 250 MG TAB PO ONE (08:00)
--- NOTE | 2020-08-24 09:30 | NUR ---
PATIENT RECEIVING DIALYSIS AT THIS TIME, UNABLE TO GIVE MEDS PER DIALYSIS NURSE. CONTINUE TO MONITOR.
[2020-08-24 11:28] VITALS: BP_SYST 92
--- NOTE | 2020-08-24 12:38 | NUR ---
CM Note: Received auth from [facility]. : to [facility] Auth # [id number], to use [facility] with auth # [id number].
[2020-08-24] MEDS: ASPIRIN 81 MG TABLET(ECOTRIN) PO SCH (13:49)
[2020-08-24] MEDS: CHOLECALCIFEROL (VITAMIN D3) 2,000 UNIT TABLET PO SCH (13:50)
[2020-08-24] MEDS: MEGESTROL ACETATE 400 MG/10 ML UDC PO SCH ×2 (13:50→21:04)
[2020-08-24] MEDS: ALLOPURINOL 100 MG TABLET (ZYLOPRIM) PO SCH (13:50)
[2020-08-24] MEDS: NEPHROVITE, (FOLIC ACID/VITAMIN B COMP W-C 1 TAB) PO SCH (13:50)
[2020-08-24] MEDS: CINACALCET HCL 30 MG TABLET PO SCH (13:50)
[2020-08-24] MEDS: PANTOPRAZOLE SODIUM 40 MG TAB PO SCH (13:50)
[2020-08-24 15:35] VITALS: BP_SYST 100
--- NOTE | 2020-08-24 15:51 | NUR ---
CM Note: f/u the Covid retesting: per RN Lupis, that was done and is waiting for the result. >> Requested Lupis to fax the result to [facility], fax # [phone], tel # [phone]. The bed is released once [facility] receives the Covid result.
--- NOTE | 2020-08-24 16:24 | NUR ---
Discharge Planning: DCP arrange transportation with [facility] ([phone]) Will Call BLS, DCP took patient packet to nurse station and made nurse aware. [facility] ([phone]) waiting for Covid19 results, then room will be given. DCP took patient packet taken to nurse station.
--- NOTE | 2020-08-24 18:01 | NUR ---
Nutrition F/U RD reviewed pt's current EMR record including diet Hx, physician notes, nursing notes, pertinent labs/meds/procedures, care trends, and care activity. Admitting Diagnosis Hypotension Reviewed Pertinent Medical/Surgical Hx Medical Record Patient Medical History Comment: PMH: HTN, CVA w/ R-sided hemiplegia, ESRD on HD per physician notes Pt also found w/ moderate malnutrition per physician notes SARS-CoV-2 Ag (Rapid) Negative 08/16 Current Diet Order: Renal diet w/ Nepro BID x5 days Subjective Information Per EMR review, pt seems to be eating poorly, w/ a decreased average PO intake record since last RD assessment. Physician orders indicate that pt may be D/C if cleared by phys assistant. Wt also seems to have increased by 10# (117# to 127# within 5 days) per wt trends; likely r/t fluid shifts associated w/ ESRD. Encourage PO intakes for adequate nutrition. Current diet order remains appropriate. Current Diet Order/Nutrition Support Regular, 2 gm Na, renal x2 days Pertinent Medications nephrovite, VIT D3, IV iron, megace Pertinent Labs BUN 21 WNL (improved), CRE 5.02 H, Ca 7 L, K 2.9 L, ALB 1.9 L Skin Integrity Comment: Catrachito scale: 16; per nursing notes, L upper arm w/ wound Current % PO 38% average x11 meals Estimated Energy Expenditure (kcals/day) 2144-9434 kcal/day (30-35 kcal/kg CBW for ESRD on HD) Estimated Protein Required (g/day) 64-80 gm/day (1.2-1.5 gm/kg CBW for ESRD on HD) Estimated Fluid Required (l/day) Per physician d/t ESRD Problem/Etiology/Signs/Symptoms Suboptimal nutritional intakes related to lack of appetite as evidenced by pt report and poor PO intake records. *ongoing Expected Outcomes/Goals - Monitor appetite and PO intakes w/ goal of pt meeting at least 75% of estimated nutritional needs, labs trending WNL, normal GI function, and skin integrity/wt maintenance Dietitian Recommendations * Recommend continuing renal diet w/ Nepro BID (ONS provides 850 kcal/day, 38 gm protein/day) * Encourage increase PO intakes Follow Up Mod Risk: F/U in 3-5 days
--- NOTE | 2020-08-24 18:06 | NUR ---
Dietitian Recommendations * Recommend continuing renal diet w/ Nepro BID (ONS provides 850 kcal/day, 38 gm protein/day) * Encourage increase PO intakes LP, RD Please refer to Nutrition F/U for details.
--- NOTE | 2020-08-24 18:12 | NUR ---
FAXED TO [facility] COVID ZENA TEST, REQUIRED FOR ADMISSION TO THE FACILITY. WILL WAIT FOR [facility], THE BARREL ROLLER OPERATOR'S CALL FOR APPROVAL THEN WILL BOOK WITH [facility] FOR TRANSFER.
[2020-08-24] MEDS: EPOETIN ALFA 10,000 UNITS/ML VIAL SUBCUT SCH (18:51)
[2020-08-24] MEDS: cefTRIAXone 1 GM in D5W 50 ML IV SCH (18:51)
--- NOTE | 2020-08-24 18:54 | NUR ---
ROUTINE MEDS ADMINISTERED ORDERED PER MD, EDUCATION GIVEN, TOLERATED WELL. CONTINUE TO MONITOR.
--- NOTE | 2020-08-24 19:34 | NUR ---
CLOSING NOTES PT AWAKE AND ALERT, WATCHING TV. NONLABORED BREATHING NOTED ON ROOM AIR. IV LINE INTACT AND PATENT, NO SIGNS OF INFILTRATION NOTED. NO ACUTE DISTRESS NOTED. ALL NEEDS MET. CALL LIGHT IN REACH. FALL AND ASPIRATION PRECAUTIONS IN PLACE. GAVE REPORT TO NURSE AT [facility], ENDORSED CARE TO DEONNA SINGER REGARDING FINISHING D/C PAPERWORK. AMBULANCE BUTTON PUSHER SCHEDULED FOR 2129.
[2020-08-24] MEDS ORDERED: CIPR250T4 PO (20:00)
--- NOTE | 2020-08-24 20:01 | NUR ---
SPOKE TO DR. INGRAM VERIFYING ABX, STATED TO INPUT CIPRO DC MED, VERIFIED, AND CARRIED OUT. RELAYED INFO TO DEONNA SINGER. RN VERBALIZED UNDERSTANDING.
[2020-08-24 20:06] VITALS: BP_SYST 139
[2020-08-24] MEDS: ATORVASTATIN 20 MG TABLET PO SCH (21:04)
== END 2020-08-24 22:00 | DRG 871 ==
LOC: SED 21:11 → STU 08-16 07:36 → SMU 08-22 17:34
PROVIDERS: ADMIT Family Medicine; ATTEND Family Medicine
PROC: 05HY33Z Insertion of Infusion Device into Upper Vein, Percutaneous Approach (ICD-10-PCS; 2020-08-16)
PROC: B54NZZA Ultrasonography of Left Upper Extremity Veins, Guidance (ICD-10-PCS; 2020-08-16)
PROC: 05HY33Z Insertion of Infusion Device into Upper Vein, Percutaneous Approach (ICD-10-PCS; 2020-08-16)
PROC: 5A1D70Z Performance of Urinary Filtration, Intermittent, Less than 6 Hours Per Day (ICD-10-PCS; 2020-08-18)
PROC: 5A1D70Z Performance of Urinary Filtration, Intermittent, Less than 6 Hours Per Day (ICD-10-PCS; 2020-08-20)
PROC: 30233N1 Transfusion of Nonautologous Red Blood Cells into Peripheral Vein, Percutaneous Approach (ICD-10-PCS; principal; 2020-08-22)
PROC: 5A1D70Z Performance of Urinary Filtration, Intermittent, Less than 6 Hours Per Day (ICD-10-PCS; 2020-08-22)
PROC: 5A1D70Z Performance of Urinary Filtration, Intermittent, Less than 6 Hours Per Day (ICD-10-PCS; 2020-08-24)
DX: A41.50 Gram-negative sepsis, unspecified (principal); N18.6 End stage renal disease; N39.0 Urinary tract infection, site not specified; I12.0 Hypertensive chronic kidney disease with stage 5 chronic kidney disease or end stage renal disease; E44.0 Moderate protein-calorie malnutrition; T82.858A Stenosis of other vascular prosthetic devices, implants and grafts, initial encounter; G81.91 Hemiplegia, unspecified affecting right dominant side; I95.9 Hypotension, unspecified; Z20.828 Contact with and (suspected) exposure to other viral communicable diseases; E87.6 Hypokalemia; F17.210 Nicotine dependence, cigarettes, uncomplicated; Y83.8 Other surgical procedures as the cause of abnormal reaction of the patient, or of later complication, without mention of misadventure at the time of the procedure; D63.1 Anemia in chronic kidney disease; E83.39 Other disorders of phosphorus metabolism; Z99.2 Dependence on renal dialysis; Z68.26 Body mass index [BMI] 26.0-26.9, adult; Y92.89 Other specified places as the place of occurrence of the external cause; Z88.0 Allergy status to penicillin; Z88.2 Allergy status to sulfonamides; Z71.6 Tobacco abuse counseling
CPT/HCPCS: 36415; 71045; 80048; 80053; 80170-TC; 82607; 82728; 82746; 83540-TC; 83550-TC; 83605; 83735-TC; 84100-TC; 84484; 85025; 85610-TC; 85730-TC; 86886; 86900; 86901; 86920; 87040-TC; 87081; 90935; 90937; 93005; 93922; 96361; 96374; 99291; G0378; J0696; J0885; J1580; J2185; J2916; J3370; J3475; J3480; J3490; J7040; J7050; J7060; P9021